=== PATIENT | male | born 1990 | race Caucasian/White ===

== ENCOUNTER 2016-07-22 21:32 | Inpatient (IN) | payer OTHER ==
[~2016-07-22] VITALS: Ht 167.6 cm; Wt 58.5 kg
[2016-07-22 21:52] LABS: ABG BASE EXCESS -15.8 (-2.0-2.0); ABG DEVICE NASAL CANN; ABG HCO3 13.7 MEQ/L (22.0-26.0); ABG PARTIAL PRESSURE CO2 46.1 mmHg (35.0-45.0); ABG PARTIAL PRESSURE O2 279.7 mmHg (75.0-100.0); ABG STANDARD HCO3 12.8 MEQ/L (22.0-26.0); ABG TOTAL CO2 15.2 MEQ/L (22.0-29.0)
[2016-07-22 21:54] LABS: MEAN CORPUSCULAR HEMOGLOBIN 29.1 pg (27.0-33.0); MEAN CORPUSCULAR HGB CONC 31.1 g/dl (32.0-36.5); MEAN CORPUSCULAR VOLUME 93.6 fl (80.0-96.0); RED CELL DISTRIBUTION WIDTH 12.7 % (11.5-14.5); WHITE BLOOD COUNT 11.9 K/mm3 (4.0-10.0)
[2016-07-22 21:55] LABS: ABG pH (ARTERIAL) 7.092 UNITS (7.350-7.450)
[2016-07-22 22:11] LABS: ALBUMIN 3.4 GM/DL (3.2-5.2); ALBUMIN/GLOBULIN RATIO 1.17 (1.00-1.93); ALKALINE PHOSPHATASE 95 U/L (45-117); ALT/SGPT 366 U/L (12-78); ANION GAP 20 MEQ/L (8-16); AST/SGOT 360 U/L (15-37); BILIRUBIN,DIRECT < 0.1 MG/DL (0.0-0.2); BILIRUBIN,TOTAL 0.3 MG/DL (0.2-1.0); BLOOD UREA NITROGEN 8 MG/DL (7-18); CALCIUM LEVEL 8.3 MG/DL (8.5-10.1); CARBON DIOXIDE LEVEL 19 MEQ/L (21-32); CHLORIDE LEVEL 104 MEQ/L (98-107); CREATININE FOR GFR 1.53 MG/DL (0.70-1.30); GLOMERULAR FILTRATION RATE 59.8 (>60); GLUCOSE, FASTING 340 MG/DL (70-105); SODIUM LEVEL 143 MEQ/L (136-145); TOTAL PROTEIN 6.3 GM/DL (6.4-8.2)
[2016-07-22 22:14] LABS: POTASSIUM SERUM 2.7 MEQ/L (3.5-5.1)
[2016-07-22 22:17] LABS: AMPHETAMINES LEVEL URINE NEGATIVE (NEGATIVE); BENZODIAZEPINES URINE NEGATIVE (NEGATIVE); COCAINE METABOLITE URINE NEGATIVE (NEGATIVE); CONTROL LINE INT CTR LINE PRESENT; METHADONE URINE NEGATIVE (NEGATIVE); OPIATES URINE NEGATIVE (NEGATIVE); TRICYCLIC ANTIDEPRESS URINE POSITIVE (NEGATIVE)
--- NOTE | 2016-07-22 23:10 | REPUSA ---
CLINICAL HISTORY: FULL ARREST TECHNIQUE: Multiple axial images were obtained through the cervical spine. Images were also reconstru cted in coronal and sagittal planes. The study was performed without IV contrast. COMMENTS: ET tube is in place. There is no fracture or spondylolisthesis visualized. The paraspinal soft tissues are unremarkable. T here are no lytic or blastic lesions. Straightening of cervical lordosis is seen, suggesting muscular spasm. There is evidence of minimal m ultilevel disk disease, demonstrated by minimal osteophytosis and endplate sclerosis. No significant disk herniation is noted at any level. Canal and foramina remain patent. IMPRESSION: 1. No fracture or spondylolisthesis. 2. Straightening of cervical lordosis is seen, suggesting muscular spasm. 3. Minimal multilevel spondylosis. Thank you for your kind referral of this patient.
--- NOTE | 2016-07-22 23:10 | REPUSA ---
CLINICAL HISTORY: FULL ARREST TECHNIQUE: Multiple axial brain CT scan sections were obtained from base to vertex without contrast a dministration. COMMENTS: There is no evidence of skull fracture. The study shows normal configuration of sella turcica. There are no intra or extra-axial collections. There is no mass effect or midline shift. There is no evidence of hematoma formation. No hydrocephal us is present. No abnormal calcifications are noted. No significant abnormalities are seen either in the posterior fossa or supratentorial compartment. The sinuses and mastoid air cells are patent. IMPRESSION: No evidence of acute intracranial pathology. No intracranial hemorrhage or skull fracture. Thank you for your kind referral of this patient.
[2016-07-22] MEDS ORDERED: HumuLIN R (REGULAR) INSULIN (NovoLIN R) **100U/ML** PER UNIT As Ordered ONE (23:36)
[2016-07-22] MEDS ORDERED: POTASSIUM PHOSPHATE IV ONE (23:45)
[2016-07-22] MEDS ORDERED: D5W IV ONE (23:45)
[2016-07-23] VITALS (22 sets, daily range): BP systolic 125–148; BP diastolic 72–107
[2016-07-23] MEDS ORDERED: POTASSIUM PHOSPHATE IV ONE (00:04)
[2016-07-23] MEDS ORDERED: D5W IV ONE (00:04)
[2016-07-23] MEDS ORDERED: GLUCOSE 4 GM CHEW TABLET PO PRN (00:15)
[2016-07-23] MEDS ORDERED: DEXTROSE 50% 50 ML SYRINGE IV PRN (00:15)
[2016-07-23] MEDS ORDERED: GLUCAGON FOR INJ 1 MG VIAL (J1610) SC PRN (00:15)
[2016-07-23] MEDS ORDERED: FLOM5CAP PO (00:33)
[2016-07-23] MEDS ORDERED: NORT25CA2 PO (00:33)
[2016-07-23] MEDS ORDERED: CITA20TA4 PO (00:33)
[2016-07-23] MEDS ORDERED: PARO10TA84 PO (00:33)
[2016-07-23] MEDS ORDERED: LYRI100C10 PO (00:33)
[2016-07-23] MEDS ORDERED: ASPI81TA7 PO (00:33)
[2016-07-23] MEDS ORDERED: BACL10TA2 PO (00:33)
[2016-07-23] MEDS ORDERED: TRAZ100T4 PO (00:33)
[2016-07-23 01:47] LABS: ABG BASE EXCESS -2.7 (-2.0-2.0); ABG HCO3 19.5 MEQ/L (22.0-26.0); ABG PARTIAL PRESSURE CO2 28.6 mmHg (35.0-45.0); ABG STANDARD HCO3 22.3 MEQ/L (22.0-26.0); ABG TOTAL CO2 20.4 MEQ/L (22.0-29.0); ABG pH (ARTERIAL) 7.451 UNITS (7.350-7.450)
--- NOTE | 2016-07-23 01:50 | EDDOCDS ---
Physician Documentation [facility] Name: Yaya Godinez Age: 25 yrs Sex: Male : 1990 Arrival Date: 07/22/2016 Time: 21:32 Bed 3 Private MD: Disposition: 07/22 23:35 Critical Care:. cs11 Disposition: 07/22/16 23:34 Hospitalization ordered by Shad Rodas for Inpatient Admission. Preliminary diagnosis are Asphyxiation due to hanging, intentional self-harm, Anoxic brain damage, not elsewhere classified, Hyperglycemia, unspecified, Hypokalemia. - Bed requested for M ICU. - Status is Inpatient Admission. jp6 - Condition is Stable. - Problem is new. - Symptoms are unchanged. Historical: - Allergies: Unable to obtain; - Home Meds: 1. many per -antidepressants - PMHx: Kidney stones; Scoliosis; Depression; Anxiety Disorder; - Family history: Not pertinent. - Social history: Smoking status: unknown if patient ever smoked tobacco. No barriers to communication noted, The patient speaks fluent Faroese, unknown. - : The pt / caregiver states he / she is not on anticoagulants. Unable to Verify Home Med List with the patient / caregiver. - Exposure Risk Screening:: None identified. Vital Signs: 21:32 BP 174 / 120 (auto/); jp6 21:34 BP 162 / 105 (auto/); jp6 21:35 Pulse 147 MON; Pulse Ox 100% ; jp6 21:36 Pulse 145 MON; Pulse Ox 100% ; jp6 21:37 BP 149 / 82 (auto/); jp6 21:37 Pulse 142 MON; Pulse Ox 100% ; jp6 21:40 BP 130 / 74 (auto/); jp6 21:40 Pulse 135 MON; Pulse Ox 100% ; jp6 21:43 BP 126 / 71 (auto/); jp6 21:43 Pulse 129 MON; Pulse Ox 100% ; jp6 21:46 BP 122 / 61 (auto/); jp6 21:46 Pulse 126 MON; Pulse Ox 100% ; jp6 21:49 BP 107 / 57 (auto/); jp6 21:49 Pulse 128 MON; Pulse Ox 100% ; jp6 21:52 BP 132 / 79 (auto/); jp6 21:52 Pulse 128 MON; Pulse Ox 99% ; jp6 21:55 BP 147 / 77 (auto/); jp6 21:55 Pulse 128 MON; Pulse Ox 99% ; jp6 21:58 BP 162 / 93 (auto/); jp6 21:58 Pulse 127 MON; Pulse Ox 98% ; jp6 22:01 BP 167 / 96 (auto/); jp6 22:01 Pulse 125 MON; Pulse Ox 98% ; jp6 22:04 BP 150 / 96 (auto/); jp6 22:04 Pulse 123 MON; Pulse Ox 98% ; jp6 22:07 BP 162 / 96 (auto/); jp6 22:07 Pulse 120 MON; Pulse Ox 100% ; jp6 22:10 BP 176 / 133 (auto/); jp6 22:10 Pulse 117 MON; Pulse Ox 99% ; jp6 22:12 Pulse 114 MON; Pulse Ox 99% ; jp6 22:13 BP 155 / 94 (auto/); jp6 22:16 BP 156 / 106 (auto/); jp6 22:16 Pulse 110 MON; Pulse Ox 99% ; jp6 22:19 BP 159 / 103 (auto/); jp6 22:19 Pulse 106 MON; Pulse Ox 99% ; jp6 22:22 BP 143 / 105 (auto/); jp6 22:22 Pulse 106 MON; Pulse Ox 99% ; jp6 22:25 BP 147 / 110 (auto/); jp6 22:25 Pulse 103 MON; Pulse Ox 99% ; jp6 22:28 BP 148 / 108 (auto/); jp6 22:28 Pulse 101 MON; Pulse Ox 100% ; jp6 22:29 Pulse 102 MON; Pulse Ox 100% ; jp6 22:31 BP 132 / 71 (auto/); jp6 22:34 BP 129 / 74 (auto/); jp6 22:34 Pulse 107 MON; jp6 22:37 BP 120 / 81 (auto/); jp6 22:37 Pulse 107 MON; jp6 22:57 BP 135 / 89 (auto/); jp6 22:59 Pulse 95 MON; Pulse Ox 100% ; jp6 23:00 BP 130 / 88 (auto/); jp6 23:01 Pulse 99 MON; Pulse Ox 100% ; jp6 23:15 BP 132 / 91 (auto/); jp6 23:16 Pulse 99 MON; Pulse Ox 100% ; jp6 23:30 BP 126 / 91 (auto/); jp6 23:31 Pulse 95 MON; Pulse Ox 100% ; jp6 23:45 BP 110 / 88 (auto/); jp6 23:46 Pulse 96 MON; Pulse Ox 100% ; jp6 07/23 00:00 BP 142 / 92 (auto/); jp6 00:00 Pulse 101 MON; Pulse Ox 100% ; jp6 00:15 BP 131 / 75 (auto/); jp6 00:16 Pulse 101 MON; Pulse Ox 100% ; jp6 00:30 BP 131 / 76 (auto/); jp6 00:31 Pulse 99 MON; Pulse Ox 100% ; jp6 00:45 BP 138 / 92 (auto/); jp6 00:46 Pulse 98 MON; Pulse Ox 100% ; jp6 00:46 Resp 18; Temp 97.8(R); jp6 MDM: 07/22 21:40 Call Respiratory ordered. cs11 21:40 Garcia ordered. cs11 21:41 CT Head Without Contrast Ordered. EDMS 21:41 CT Spine,Cervical W/o Contrast Ordered. EDMS 21:42 CBC Ordered. EDMS 21:43 MED Profile Ordered. EDMS 21:43 -Arterial Blood Gas Ordered. EDMS 21:43 Liver Profile Ordered. EDMS 21:43 Cardiac Marker Panel Ordered. EDMS 21:43 Urine Toxicology Ordered. EDMS 21:44 Chest, 1 View Ordered. EDMS 21:44 ECG WITH READING ER PHYS+CARDIAG ordered. EDMS 21:56 Call Respiratory complete. jp6 22:57 Financial registration complete. [email or web address] 22:57 [facility] Payment Agreement was scanned into [employer] and attached to record. [email or web address] 23:22 CBC Reviewed. cs11 23:22 MED Profile Reviewed. cs11 23:22 -Arterial Blood Gas Reviewed. cs11 23:22 Liver Profile Reviewed. cs11 23:22 Urine Toxicology Reviewed. cs11 23:22 Cardiac Marker Panel Reviewed. cs11 23:22 CT Head Without Contrast Reviewed. cs11 23:22 CT Spine,Cervical W/o Contrast Reviewed. cs11 23:25 Potassium Phosphate (0.5 mmol/kg) 40 mEq IV at calculated rate once; dose as phosphate; cs11 do not exceed 30 mMol phosphate per 24 hours; infuse over 6-12 hours ordered. 23:25 Insulin Regular Human 15 units IVP once ordered. cs11 23:25 Accucheck ordered. cs11 23:26 BED REQUEST+ADM ordered. EDMS 07/23 00:15 Admission / Observation Status ordered. EDMS 00:15 CT Head without contrast Ordered. EDMS 00:15 NPO DIET ordered. EDMS 00:16 ARTERIAL BLOOD GAS Ordered. EDMS 00:16 Fingerstick Blood Sugar Ordered. EDMS 00:17 VENTILATOR SETTINGS ordered. EDMS 00:17 PORTABLE CHEST X-RAY Ordered. EDMS 00:17 PORTABLE CHEST X-RAY Ordered. EDMS 00:17 PORTABLE CHEST X-RAY Ordered. EDMS 00:17 PORTABLE CHEST X-RAY Ordered. EDMS 00:18 PORTABLE CHEST X-RAY Ordered. EDMS 00:18 PORTABLE CHEST X-RAY Ordered. EDMS 00:18 PORTABLE CHEST X-RAY Ordered. EDMS 00:18 PORTABLE CHEST X-RAY Ordered. EDMS 00:18 ELECTROCARDIOGRAM ADULT ordered. EDMS Point of Care Testing: Blood Glucose: 00:09 Blood Glucose: 97 mg/dL; jp6 Ranges: Administered Medications: 07/22 23:41 Drug: Insulin Regular Human 15 units [insulin regular human 100 unit/mL injection jp6 solution (0.15 mL)] {Co-Signature: juan ramon (Tabatha Zhao RN).} Route: IVP; Site: right forearm; 07/23 00:42 Drug: Potassium Phosphate (0.5 mmol/kg) 40 mEq {Co-Signature: maria elena5 (Denae Santiago RN).} jp6 Route: IV; Rate: calculated rate; Site: right forearm; Critical Care Time: 07/22 23:35 Critical care time: Bedside Care: 120 minutes. Total time: 120 minutes cs11 Signatures: Dispatcher [employer] EDCarmelo Phillip DO DO cs11 Julienne Bonilla, Child Support Investigator Unit Regine Lyn, Reg Reg [email or web address] Silvia Sears,RN RN jp6 Denae merchant2 The chart was reviewed and I authenticate all verbal orders and agree with the evaluation and treatment provided.Attachments: 22:57 [facility] Payment Agreement [email or web address]
--- NOTE | 2016-07-23 01:50 | EDDOCDS ---
Nurse's Notes [facility] Name: Yaya Godinez Age: 25 yrs Sex: Male : 1990 Arrival Date: 07/22/2016 Time: 21:32 Bed 3 Private MD: Diagnosis: Asphyxiation due to hanging, intentional self-harm;Anoxic brain damage, not elsewhere classified;Hyperglycemia, unspecified;Hypokalemia Presentation: 07/22 21:57 Presenting complaint: EMS states: called 911- 21 year old male texted 1 hour jp6 ago stating hung himself and that she cut him down. 911 arrived and started CPR-enroute was intubated and IV started pulselless upon ems arrival to scene.PEA-2 rounds of epi pulses wes enroute b/p-157/91 BS-228 Incontinet of urine.Upon arrival ligature lou around neck w/ rope intact. Method of arrival: Ambulance: direct to room. Care prior to arrival: See EMS report. oral intubation, CPR manually performed by EMS Medications administered prior to arrival: 2 rounds of epinephrine IV initiated. Glucose check. 228. Compressions began prior to arrival. 21:57 Acuity: NITESH Level 1 jp6 07/23 01:10 Adult Sepsis Screening: The patient does not have new or worsening altered mentation. jp6 Patient's respiratory rate is less than 22. Systolic blood pressure is greater than 100. Patient has a qSOFA score of 0- Negative Sepsis Screen. Suicide/Homicide risk assessment- Unable to assess. 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 Transition of care: patient was not received from another setting of care. Triage Assessment: 01:04 Pain: Unable to use pain scale. Patient is intubated. Patient is unresponsive. HIV jp6 screening NA for this visit. Historical: - Allergies: Unable to obtain; - Home Meds: 1. many per -antidepressants - PMHx: Kidney stones; Scoliosis; Depression; Anxiety Disorder; - Family history: Not pertinent. - Social history: Smoking status: unknown if patient ever smoked tobacco. No barriers to communication noted, The patient speaks fluent Croatian, unknown. - : The pt / caregiver states he / she is not on anticoagulants. Unable to Verify Home Med List with the patient / caregiver. - Exposure Risk Screening:: None identified. Screenin/14 23:16 Screening information is obtained from the patient. Fall risk: No risks identified. jp6 Assistance ADL's: unable to assess. Abuse/DV Screen:. Nutritional screening: Unable to Assess. Advance Directives: Unable to assess Advance Directive status due to pt condition. 07/23 01:10 Abuse/DV Screen: The patient / caregiver reports he/she is: pt cannot be assessed for jp6 living situation at this time. home support is adequate. Assessment: 07/22 21:57 CPR assessment: unresponsive, pupils fixed & dilated, intubated. Cardiac rhythm is jp6 Sinus Tachycardia. General: Appears slender. Neurological: Level of Consciousness is unresponsive, Oriented to none no reflexes per doctor. EENT: Nares with bleeding noted from left nare. : Garcia in place Urine is clear. Derm: Skin ligature lou around neck Skin is pale, Skin temperature is cool. 22:30 Reassessment: no change in pt's condition.. [facility] 23:00 Reassessment: condition remains the same-down to CT and ret'. remains in [facility] 6 room.. 07/23 00:43 Reassessment: No change in assessment originally. remains in [facility]ity room. 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 Neurological:. Cardiovascular: Rhythm is sinus rhythm No ectopy. Respiratory: Airway is patent Respiratory effort is even, unlabored, Respiratory pattern is regular, symmetrical, remains on ventilator. : Garcia in place Urine is clear. Musculoskeletal: remains flaccid,no reflex response. Social Work Consult: 07/22 23:17 Social Work Note: Extended support given to . is directing PSA not to give ml4 information to pt's Mother or to any other family member at this time. PSA will remain available at this time. Vital Signs: 21:32 BP 174 / 120 (auto/); jp6 21:34 BP 162 / 105 (auto/); jp6 21:35 Pulse 147 MON; Pulse Ox 100% ; jp6 21:36 Pulse 145 MON; Pulse Ox 100% ; jp6 21:37 BP 149 / 82 (auto/); jp6 21:37 Pulse 142 MON; Pulse Ox 100% ; jp6 21:40 BP 130 / 74 (auto/); jp6 21:40 Pulse 135 MON; Pulse Ox 100% ; jp6 21:43 BP 126 / 71 (auto/); jp6 21:43 Pulse 129 MON; Pulse Ox 100% ; jp6 21:46 BP 122 / 61 (auto/); jp6 21:46 Pulse 126 MON; Pulse Ox 100% ; jp6 21:49 BP 107 / 57 (auto/); jp6 21:49 Pulse 128 MON; Pulse Ox 100% ; jp6 21:52 BP 132 / 79 (auto/); jp6 21:52 Pulse 128 MON; Pulse Ox 99% ; jp6 21:55 BP 147 / 77 (auto/); jp6 21:55 Pulse 128 MON; Pulse Ox 99% ; jp6 21:58 BP 162 / 93 (auto/); jp6 21:58 Pulse 127 MON; Pulse Ox 98% ; jp6 22:01 BP 167 / 96 (auto/); jp6 22:01 Pulse 125 MON; Pulse Ox 98% ; jp6 22:04 BP 150 / 96 (auto/); jp6 22:04 Pulse 123 MON; Pulse Ox 98% ; jp6 22:07 BP 162 / 96 (auto/); jp6 22:07 Pulse 120 MON; Pulse Ox 100% ; jp6 22:10 BP 176 / 133 (auto/); jp6 22:10 Pulse 117 MON; Pulse Ox 99% ; jp6 22:12 Pulse 114 MON; Pulse Ox 99% ; jp6 22:13 BP 155 / 94 (auto/); jp6 22:16 BP 156 / 106 (auto/); jp6 22:16 Pulse 110 MON; Pulse Ox 99% ; jp6 22:19 BP 159 / 103 (auto/); jp6 22:19 Pulse 106 MON; Pulse Ox 99% ; jp6 22:22 BP 143 / 105 (auto/); jp6 22:22 Pulse 106 MON; Pulse Ox 99% ; jp6 22:25 BP 147 / 110 (auto/); jp6 22:25 Pulse 103 MON; Pulse Ox 99% ; jp6 22:28 BP 148 / 108 (auto/); jp6 22:28 Pulse 101 MON; Pulse Ox 100% ; jp6 22:29 Pulse 102 MON; Pulse Ox 100% ; jp6 22:31 BP 132 / 71 (auto/); jp6 22:34 BP 129 / 74 (auto/); jp6 22:34 Pulse 107 MON; jp6 22:37 BP 120 / 81 (auto/); jp6 22:37 Pulse 107 MON; jp6 22:57 BP 135 / 89 (auto/); jp6 22:59 Pulse 95 MON; Pulse Ox 100% ; jp6 23:00 BP 130 / 88 (auto/); jp6 23:01 Pulse 99 MON; Pulse Ox 100% ; jp6 23:15 BP 132 / 91 (auto/); jp6 23:16 Pulse 99 MON; Pulse Ox 100% ; jp6 23:30 BP 126 / 91 (auto/); jp6 23:31 Pulse 95 MON; Pulse Ox 100% ; jp6 23:45 BP 110 / 88 (auto/); jp6 23:46 Pulse 96 MON; Pulse Ox 100% ; jp6 07/23 00:00 BP 142 / 92 (auto/); jp6 00:00 Pulse 101 MON; Pulse Ox 100% ; jp6 00:15 BP 131 / 75 (auto/); jp6 00:16 Pulse 101 MON; Pulse Ox 100% ; jp6 00:30 BP 131 / 76 (auto/); jp6 00:31 Pulse 99 MON; Pulse Ox 100% ; jp6 00:45 BP 138 / 92 (auto/); jp6 00:46 Pulse 98 MON; Pulse Ox 100% ; jp6 00:46 Resp 18; Temp 97.8(R); jp6 Vitals: 07/22 23:19 See Trend Data for complete VS documentation. 6 07/23 01:04 Log In Time N/A - ambulance arrival. jp6 ED Course: 07/22 21:33 Patient visited by Ganesh Strange. zo 21:33 Patient moved to Waiting zo 21:34 Patient moved to 3 zo 21:38 Carmelo Curry DO is Attending Physician. cs11 21:38 Patient visited by Carmelo Curry DO. cs11 21:56 Silvia Sears,RN is Primary Nurse. jp6 21:56 Patient visited by Silvia Sears,RN. jp6 21:56 Notified attending ED physician of Critical lab value. pH 7.092. kmg1 21:56 Urine Toxicology Sent. jp6 22:05 Patient visited by Torey Schultz PCA. jmv 22:05 EKG done. (by ED staff). Reviewed by Carmelo Curry DO. jmv 22:14 Notified attending ED physician of Critical lab value. Potassium 2.7. kmg1 22:57 [facility] Payment Agreement was scanned into [employer] and attached to record. ks16 23:16 ekg monitor on. Pulse ox on. NIBP on. jp6 23:16 Inserted saline lock: 18 gauge in right forearm and blood collected. Garcia cath jp6 inserted 16 Fr. Balloon inflated. To gravity drainage. Urine specimen collected. 23:17 CT Head Without Contrast Returned. EDMS 23:17 CT Spine,Cervical W/o Contrast Returned. EDMS 23:19 Patient visited by Silvia Sears,TIANA. jp6 23:33 Shad Rodas is Hospitalizing Provider. cs11 07/23 00:01 Linen changed. jlm 00:02 the rope that the patient had around his throat was cut off and placed in a red bio bag [facility] and was placed with the patients belonging bag along with his clothes.. 00:04 Patient visited by Julienne Bonilla, Borderer. jlm 00:46 Unable to instruct regarding the plan of care due to patient condition. jp6 00:46 No procedures done that require assistance. jp6 Administered Medications: 07/22 23:41 Drug: Insulin Regular Human 15 units [insulin regular human 100 unit/mL injection jp6 solution (0.15 mL)] {Co-Signature: kas2 (Tabatha Zhao RN).} Route: IVP; Site: right forearm; 07/23 00:42 Drug: Potassium Phosphate (0.5 mmol/kg) 40 mEq {Co-Signature: tm5 (Denae Santiago RN).} jp6 Route: IV; Rate: calculated rate; Site: right forearm; Point of Care Testing: Blood Glucose: 00:09 Blood Glucose: 97 mg/dL; jp6 Ranges: Intake: 00:46 PO: 0.00ml; IV: 0.00ml; Total: 0.00ml. jp6 Output: 00:46 Urine: 700.00ml (Garcia); Total: 700.00ml. jp6 RT: 07/22 21:51 ABG's drawn from left radial artery allens test done and positive pressure held for 5 rs5 minutes no bleeding noted pressure bandage applied specimen sent pt. tolerated well. Ventilation: Ventilator Settings Assist Control. 21:59 Ventilation: Ventilator Settings Assist Control, FiO2 40% Resp Rate: 14, Tidal Volume rs5 450ml PEEP: 5. 07/23 00:02 Respiratory Transport: Transported From ED Transported to CT Scan. kjn 00:03 Ventilation: Ventilator Settings Assist Control, FiO2 35% Resp Rate: 18, Tidal Volume kjn 400ml PEEP: 5. Order Results: Lab Order: CBC; SPEC'M 07/22/16 21:41 Test: WHITE BLOOD COUNT; Value: 11.9; Range: 4.0-10.0; Abnormal: Above high normal; Units: K/mm3; Status: F Test: RED BLOOD COUNT; Value: 4.62; Range: 4.30-6.10; Units: M/mm3; Status: F Test: HEMOGLOBIN; Value: 13.5; Range: 14.0-18.0; Abnormal: Below low normal; Units: g/dl; Status: F Test: HEMATOCRIT; Value: 43.3; Range: 42.0-52.0; Units: %; Status: F Test: MEAN CORPUSCULAR VOLUME; Value: 93.6; Range: 80.0-96.0; Units: fl; Status: F Test: MEAN CORPUSCULAR HEMOGLOBIN; Value: 29.1; Range: 27.0-33.0; Units: pg; Status: F Test: MEAN CORPUSCULAR HGB CONC; Value: 31.1; Range: 32.0-36.5; Abnormal: Below low normal; Units: g/dl; Status: F Test: RED CELL DISTRIBUTION WIDTH; Value: 12.7; Range: 11.5-14.5; Units: %; Status: F Test: PLATELET COUNT, AUTOMATED; Value: 239; Range: 150-450; Units: k/mm3; Status: F Lab Order: MED Profile; SPEC'M 07/22/16 21:41 Test: GLUCOSE, FASTING; Value: 340; Range: 70-105; Abnormal: Above high normal; Units: MG/DL; Status: F Test: BLOOD UREA NITROGEN; Value: 8; Range: 7-18; Units: MG/DL; Status: F Test: CREATININE FOR GFR; Value: 1.53; Range: 0.70-1.30; Abnormal: Above high normal; Units: MG/DL; Status: F Test: GLOMERULAR FILTRATION RATE; Value: 59.8; Range: >60; Abnormal: Below low normal; Status: F Test: SODIUM LEVEL; Value: 143; Range: 136-145; Units: MEQ/L; Status: F Test: POTASSIUM SERUM; Value: 2.7; Range: 3.5-5.1; Abnormal: Critical Low; Units: MEQ/L; Status: F Test: CHLORIDE LEVEL; Value: 104; Range: 98-107; Units: MEQ/L; Status: F Test: CARBON DIOXIDE LEVEL; Value: 19; Range: 21-32; Abnormal: Below low normal; Units: MEQ/L; Status: F Test: ANION GAP; Value: 20; Range: 8-16; Abnormal: Above high normal; Units: MEQ/L; Status: F Test: CALCIUM LEVEL; Value: 8.3; Range: 8.5-10.1; Abnormal: Below low normal; Units: MG/DL; Status: F Test Note: ; Units are mL/min/1.73 m2 Chronic Kidney Disease Staging per NKF: Stage I & II GFR >=60 Normal to Mildly Decreased Stage III GFR 30-59 Moderately Decreased Stage IV GFR 15-29 Severely Decreased Stage V GFR <15 Very Little GFR Left ESRD GFR <15 on [employer]OTOGR[employer]IN[employer] CURATOR Lab Order: -Arterial Blood Gas; [facility]' 07/22/16 21:43 Test: ABG pH (ARTERIAL); Value: 7.092; Range: 7.350-7.450; Abnormal: Critical Low; Units: UNITS; Status: F Test: ABG PARTIAL PRESSURE CO2; Value: 46.1; Range: 35.0-45.0; Abnormal: Above high normal; Units: mmHg; Status: F Test: ABG PARTIAL PRESSURE O2; Value: 279.7; Range: 75.0-100.0; Abnormal: Above high normal; Units: mmHg; Status: F Test: ABG TOTAL CO2; Value: 15.2; Range: 22.0-29.0; Abnormal: Below low normal; Units: MEQ/L; Status: F Test: ABG HCO3; Value: 13.7; Range: 22.0-26.0; Abnormal: Below low normal; Units: MEQ/L; Status: F Test: ABG BASE EXCESS; Value: -15.8; Range: -2.0-2.0; Abnormal: Below low normal; Status: F Test: ABG STANDARD HCO3; Value: 12.8; Range: 22.0-26.0; Abnormal: Below low normal; Units: MEQ/L; Status: F Test: ABG O2 SATURATION; Value: 99.6; Range: 95.0-99.0; Abnormal: Above high normal; Units: %; Status: F Test: ABG DEVICE; Value: NASAL PRITI; Status: F Lab Order: Liver Profile; [facility]' 07/22/16 21:41 Test: AST/SGOT; Value: 360; Range: 15-37; Abnormal: Above high normal; Units: U/L; Status: F Test: ALT/SGPT; Value: 366; Range: 12-78; Abnormal: Above high normal; Units: U/L; Status: F Test: ALKALINE PHOSPHATASE; Value: 95; Range: 45-117; Units: U/L; Status: F Test: BILIRUBIN,TOTAL; Value: 0.3; Range: 0.2-1.0; Units: MG/DL; Status: F Test: BILIRUBIN,DIRECT; Value: < 0.1; Range: 0.0-0.2; Units: MG/DL; Status: F Test: TOTAL PROTEIN; Value: 6.3; Range: 6.4-8.2; Abnormal: Below low normal; Units: GM/DL; Status: F Test: ALBUMIN; Value: 3.4; Range: 3.2-5.2; Units: GM/DL; Status: F Test: ALBUMIN/GLOBULIN RATIO; Value: 1.17; Range: 1.00-1.93; Status: F Lab Order: Cardiac Marker Panel; [facility]' 07/22/16 21:41 Test: CPK CREATINE PHOSPHOKINASE; Value: 146; Range: 39-308; Units: U/L; Status: F Test: CK-MB VALUE MASS; Value: 1.0; Range: 0.0-3.6; Units: NG/ML; Status: F Test: MB/CK RELATIVE INDEX; Value: 0.68; Range: < OR =4; Status: F Test: TROPONIN I; Value: < 0.02; Range: < 0.10; Units: NG/ML; Status: F Test Note: ; DIAGNOSIS CRITERIA MMB ng/ml Relative Index (RI) NON-AMI < or = 5 N/A CONNER ZONE > 5 < or = 4 AMI > 5 > 4 Lab Order: Urine Toxicology; SPEC'M 07/22/16 21:55 Test: AMPHETAMINES LEVEL URINE; Value: NEGATIVE; Range: NEGATIVE; Status: F Test: BARBITURATES URINE; Value: NEGATIVE; Range: NEGATIVE; Status: F Test: BENZODIAZEPINES URINE; Value: NEGATIVE; Range: NEGATIVE; Status: F Test: CANNABINOIDS URINE; Value: NEGATIVE; Range: NEGATIVE; Status: F Test: COCAINE METABOLITE URINE; Value: NEGATIVE; Range: NEGATIVE; Status: F Test: METHADONE URINE; Value: NEGATIVE; Range: NEGATIVE; Status: F Test: OPIATES URINE; Value: NEGATIVE; Range: NEGATIVE; Status: F Test: TRICYCLIC ANTIDEPRESS URINE; Value: POSITIVE; Range: NEGATIVE; Abnormal: Above high normal; Status: F Test Note: ; ALL PRESUMPTIVE POSITIVE FINDINGS ARE UNCONFIRMED NORMAL VALUES THRESHOLD IN NG/ML AMPHETAMINES 1000 METHAMPHETAMINES 1000 BARBITURATES 300 BENZODIAZEPINES 300 CANNABINOIDS (THC) 50 COCAINE METABOLITE 300 METHADONE 300 OPIATES 300 PHENCYCLIDINE 25 TRICYCLIC ANTIDEPRESSANTS 1000 RESULTS ARE FOR MEDICAL PURPOSES ONLY. ALL URINE SPECIMENS WILL BE SAVED FOR 3 DAYS. IF CONFIRMATION OF A PRESUMPTIVE POSTIVE SCREEN RESULT IS DESIRED, CALL CHEMISTRY ([phone]) AND REQUEST URINE TO BE SENT TO REFERENCE LAB. FOR A LIST OF CLOSELY RELATED COMPOUNDS PLEASE CALL THE LAB. Lab Order: ARTERIAL BLOOD GAS; SPEC'M 07/23/16 01:33 Test: ABG pH (ARTERIAL); Value: 7.451; Range: 7.350-7.450; Abnormal: Above high normal; Units: UNITS; Status: F Test: ABG PARTIAL PRESSURE CO2; Value: 28.6; Range: 35.0-45.0; Abnormal: Below low normal; Units: mmHg; Status: F Test: ABG PARTIAL PRESSURE O2; Value: 208.0; Range: 75.0-100.0; Abnormal: Above high normal; Units: mmHg; Status: F Test: ABG TOTAL CO2; Value: 20.4; Range: 22.0-29.0; Abnormal: Below low normal; Units: MEQ/L; Status: F Test: ABG HCO3; Value: 19.5; Range: 22.0-26.0; Abnormal: Below low normal; Units: MEQ/L; Status: F Test: ABG BASE EXCESS; Value: -2.7; Range: -2.0-2.0; Abnormal: Below low normal; Status: F Test: ABG STANDARD HCO3; Value: 22.3; Range: 22.0-26.0; Units: MEQ/L; Status: F Test: ABG O2 SATURATION; Value: 99.6; Range: 95.0-99.0; Abnormal: Above high normal; Units: %; Status: F Lab Order: Fingerstick Blood Sugar; SPEC'M 07/23/16 00:07 Test: BEDSIDE GLUCOSE; Value: 97; Range: 70-105; Units: MG/DL; Status: F Radiology Order: CT Head Without Contrast Test: CT Head Without Contrast REASON FOR EXAMINATION: aloc; ; CLINICAL HISTORY: FULL ARREST; TECHNIQUE: Multiple axial brain CT scan sections were obtained from base to vertex without contrast a; dministration.; COMMENTS:; There is no evidence of skull fracture.; The study shows normal configuration of sella turcica. There are no intra or extra-axial collections.; There is no mass effect or midline shift. There is no evidence of hematoma formation. No hydrocephal; us is present. No abnormal calcifications are noted.; No significant abnormalities are seen either in the posterior fossa or supratentorial compartment.; The sinuses and mastoid air cells are patent.; IMPRESSION:; No evidence of acute intracranial pathology. No intracranial hemorrhage or skull fracture.; Thank you for your kind referral of this patient.; ; Radiology Order: CT Spine,Cervical W/o Contrast Test: CT Spine,Cervical W/o Contrast REASON FOR EXAMINATION: Trauma; ; CLINICAL HISTORY: FULL ARREST; TECHNIQUE: Multiple axial images were obtained through the cervical spine. Images were also reconstru; cted in coronal and sagittal planes. The study was performed without IV contrast.; COMMENTS:; ET tube is in place.; There is no fracture or spondylolisthesis visualized. The paraspinal soft tissues are unremarkable. T; here are no lytic or blastic lesions.; Straightening of cervical lordosis is seen, suggesting muscular spasm. There is evidence of minimal m; ultilevel disk disease, demonstrated by minimal osteophytosis and endplate sclerosis.; No significant disk herniation is noted at any level. Canal and foramina remain patent.; IMPRESSION:; 1. No fracture or spondylolisthesis.; 2. Straightening of cervical lordosis is seen, suggesting muscular spasm.; 3. Minimal multilevel spondylosis.; Thank you for your kind referral of this patient.; ; Outcome: 07/22 23:34 Decision to Hospitalize by Provider. cs11 07/23 00:46 Discharge Assessment: Patient unresponsive, Oriented to none Patient Patient patient jp6 administered narcotics - no. Admitted to ICU accompanied by nurse, accompanied by tech, via stretcher, with oxygen, on monitor, with chart. critical. CT Study completed. Property :Personal belongings accompany Pt. 01:05 Code Team Members : Silvia Sears RN Respiratory Therapist: Juan Carlos Baird Other [facility] Team Members: Elizabeth Cardenas,Torey Taylor Kelly Garrison Nursing Lead Dental Assistant: Christine Patel Computer Networking Instructor Adjunct: Maty. ekg done. Outcome pt noted to have anoxic brain injury from hanging per MD. 01:10 The following High Risk Discharge criteria are identified: None. Admission hand-off: jp6 Report called to Orly MONTIEL. 01:50 Patient left the ED. [facility] Signatures: Dispatcher [employer] EDMS Mabel Myles, RN RN kmg1 Maty Dimas, PSA PSA ml4 Ganesh Strange Richard,RT RT rs5 Imani Fajardo Craig, DO cs11 Julienne Bonilla, Borderer Unit jlRegine Lyn, Reg Reg ks16 Silvia Sears,RN RN jp6 Torey Schultz, WEBSPHERE COMMERCE DEVELOPER WEBSPHERE COMMERCE DEVELOPER jmv Denae Santiago RN tm5 Tabatha Zhao RN kas2 [facility]
[2016-07-23] MEDS: MIDAZOLAM INJ 2 MG/2 ML VIAL (J2250) IV PRN ×12 (04:10→18:14)
[2016-07-23 04:53] LABS: BASO % 0.3 % (0.0-1.0); EOS % 0.3 % (0.0-3.0); LARGE UNSTAINED CELL # 0.1 K/mm3 (0.0-0.4); LARGE UNSTAINED CELL % 0.8 % (0.0-4.0); LYMPH # 0.7 K/mm3 (1.5-6.5); LYMPH % 4.3 % (24.0-44.0); MEAN CORPUSCULAR HGB CONC 32.6 g/dl (32.0-36.5); MEAN CORPUSCULAR VOLUME 89.2 fl (80.0-96.0); MONO # 0.7 K/mm3 (0.0-0.8); MONO % 4.1 % (0.0-5.0); NEUTROPHILS # 14.3 K/mm3 (1.8-7.7); NEUTROPHILS % 90.3 % (36.0-66.0); PLATELET COUNT, AUTOMATED 179 k/mm3 (150-450); RED CELL DISTRIBUTION WIDTH 13.2 % (11.5-14.5); WHITE BLOOD COUNT 15.8 K/mm3 (4.0-10.0)
[2016-07-23 05:06] LABS: ALBUMIN 4.3 GM/DL (3.2-5.2); ALBUMIN/GLOBULIN RATIO 1.19 (1.00-1.93); ALKALINE PHOSPHATASE 118 U/L (45-117); ALT/SGPT 484 U/L (12-78); ANION GAP 10 MEQ/L (8-16); AST/SGOT 358 U/L (15-37); BILIRUBIN,TOTAL 0.3 MG/DL (0.2-1.0); BLOOD UREA NITROGEN 12 MG/DL (7-18); CALCIUM LEVEL 9.1 MG/DL (8.5-10.1); CARBON DIOXIDE LEVEL 25 MEQ/L (21-32); CHLORIDE LEVEL 107 MEQ/L (98-107); CHOLESTEROL LEVEL 141 MG/DL (< 200); GLOMERULAR FILTRATION RATE > 60.0 (>60); GLUCOSE, FASTING 112 MG/DL (70-105); PHOSPHORUS LEVEL 1.8 MG/DL (2.5-4.9); POTASSIUM SERUM 3.5 MEQ/L (3.5-5.1); SODIUM LEVEL 142 MEQ/L (136-145); TOTAL PROTEIN 7.9 GM/DL (6.4-8.2); TRIGLYCERIDES LEVEL 152 MG/DL (<150)
[2016-07-23 05:13] LABS: ABG BASE EXCESS -3.1 (-2.0-2.0); ABG HCO3 20.1 MEQ/L (22.0-26.0); ABG PARTIAL PRESSURE CO2 31.7 mmHg (35.0-45.0); ABG PARTIAL PRESSURE O2 201.6 mmHg (75.0-100.0); ABG pH (ARTERIAL) 7.419 UNITS (7.350-7.450)
[2016-07-23] MEDS ORDERED: REFRIGERATOR IV KEYS XX PRN (05:30)
[2016-07-23] MEDS ORDERED: MIDAZOLAM HCL 100 MG in D5W 80 ML IV SCH (05:30)
[2016-07-23] MEDS: HEPARIN SOD (PORCINE) 5000 UNITS/ML VIAL SC SCH ×3 (06:00→21:39)
[2016-07-23] MEDS ORDERED: PHENYTOIN 100 MG/2 ML VIAL (J1165) IV ONE (06:15)
[2016-07-23] MEDS ORDERED: PHENYTOIN INJ 250 MG/5 ML VIAL (J1165) As Ordered ONE (06:32)
[2016-07-23] MEDS: PHENYTOIN IV ONE ×2 (06:45→07:56)
[2016-07-23] MEDS: NS IV ONE ×2 (06:45→07:56)
[2016-07-23] MEDS: KCL 40MEQ IN D5/0.45NS 1000ML 1,000 ML IV SCH ×2 (06:54→20:30)
--- NOTE | 2016-07-23 07:36 | ECGEPIP ---
Stationary ECG Study [facility] - ED Test Date: 2016-07-22 Pat Name: ESHA LOVELACE Department: Room: [place] [address] Gender: M [place] [employer] Director: cameron : 1990 Requested By: JOHN PAUL BUENO Order Number: [id number] Reading MD: Rachelle Andres Measurements Intervals [place] Rate: 124 P: 91 IN: 104 QRS: 97 QRSD: 98 T: 93 QT: 291 QTc: 418 Interpretive Statements SINUS TACHYCARDIA WITH SHORT IN INTERVAL BORDERLINE RIGHT AXIS DEVIATION PATTERN CONSISTENT WITH PULMONARY DISEASE INCOMPLETE RIGHT BUNDLE BRANCH BLOCK NONSPECIFIC ST & T-WAVE ABNORMALITY NO PRIOR FOR COMPARISON Electronically Signed On 07-23-2016 7:35:31 EST by Rachelle Andres
[2016-07-23] MEDS: HumaLOG INSULIN (NovoLOG) PER UNIT SC SCH ×4 (07:43→18:00)
--- NOTE | 2016-07-23 08:12 | REP ---
Clinical: Endotracheal tube placement. Findings: Endotracheal tube is identified approximately 2.8 cm above the milena. Mediastinum and cardiac silhouette are normal. Lung young without focal consolidation, effusion, or pneumothorax. Skeletal structures are intact. Impression: Endotracheal tube in satisfactory position. No acute cardiopulmonary process identified. Signed by Corky Gomez MD 07/23/2016 08:03 A
--- NOTE | 2016-07-23 08:46 | REP ---
Clinical: Intubation. Comparison: 07/22/2016. Findings: Endotracheal tube approximately 2.8 cm above the milena. Nasogastric tube courses below the left hemidiaphragm. Mediastinum and cardiac silhouette are normal. Lung young are clear and without consolidation, effusion, or pneumothorax. Skeletal structures are intact. Impression: Lines and tubes in satisfactory position. No acute cardiopulmonary process. Signed by Corky Gomez MD 07/23/2016 08:37 A
[2016-07-23] MEDS: CHLORHEXIDINE GLUCONATE 0.12 % 15ML UDC (PERIDEX ORAL RINSE) MT SCH ×2 (09:00→20:30)
[2016-07-23] MEDS: PANTOPRAZOLE 40MG INJ (PROTONIX) (C9113) IV SCH (09:00)
[2016-07-23] MEDS: K-PHOS ORIGINAL (POT.ACID PHOSPHATE) 500MG TAB PO SCH ×2 (09:00→20:31)
--- NOTE | 2016-07-23 10:54 | REP ---
Clinical: Hypoxic encephalopathy . Comparison: 07/22/2016. Findings: The ventricles, sulci, and cisterns are normal in position and appearance. Slade-white differentiation is diffusely pronounced which may be related to hypoxic encephalopathy. No acute intracranial hemorrhage, mass/mass effect, pathology or trauma/injury. No evidence for acute infarction. No extra-axial fluid collection. Calvarium is intact. Paranasal sinuses and mastoid air cells are clear. Impression: Pronounced contrast to slade white differentiation may be related to hypoxic encephalopathy. No evidence for acute intracranial hemorrhage, hydrocephalus, or mass/mass effect. Signed by Corky Gomez MD 07/23/2016 10:45 A
--- NOTE | 2016-07-23 10:59 | HPE ---
DATE OF ADMISSION: 07/23/2016 CRITICAL CARE NOTE Date: 07/22/2016 I was called to the emergency department to evaluate this 25-year-old male who was found having hanged himself. Emergency medical services (EMS) reported that he was in pulseless electrical activity but responded to resuscitation including IV epinephrine. In the emergency department, he is unresponsive. Endotracheal tube is in place. It was placed in the field. His past medical history per the electronic health record includes nephrolithiasis. At bedside, his temperature is 97, pulse rate 78, respirations 18 over 18 delivered, blood pressure 127/70. HEENT: His pupils are 3 mm, nonreactive. There are no doll's eyes, no corneal reflex. His [place] coma scale is 3. There is a #7.5 endotracheal tube at 23 cm at the lip line. Mucosa is moist. Neck shows a ligature lou. Jugular veins not distended. Heart sounds are regular. Breath sounds are clear. Abdomen is soft with bowel sounds in the right lower quadrant. Extremities show pulses times four. Muscle tone is flaccid. DIAGNOSTIC STUDIES: Sodium 143, potassium 2.7, chloride 104, CO2 19, BUN 8, creatinine 1.5, glucose 340, white cell count is 11.9, hemoglobin 13.5, hematocrit 43.3, platelet count 237,000. Arterial blood gases on admission showed a pH of 7.09, pCO2 46, pO2 279. Toxicology screen of the urine was positive for tricyclic antidepressants. Chest x-ray shows endotracheal tube in good position, clear lung young, normal heart size. CT of the head shows loss of kincaid-white matter interface. Formal report is pending. CT scan of the neck shows no abnormalities. The primary problem requiring critical attention is acute respiratory failure. The patient is intubated. Will initiate mechanical ventilation with volume control and recheck arterial blood gases. Hypoxic encephalopathy. Will recheck a CT scan of his head the morning. Hypokalemia. Replacement potassium was arranged in the emergency department. We will add additional potassium to his IV fluids and recheck the electrolytes. Tricyclic antidepressants in the urine. Will monitor QT interval on the telemetry and recheck an EKG in the morning. Deep vein thrombosis (DVT) and ulcer prophylaxis will be addressed. Glycemic control will be addressed with subcutaneous insulin and coverage. The patient's condition is critical. Prognosis is poor. 88 minutes was spent in provision of bedside critical care and coordination.
--- NOTE | 2016-07-23 12:06 | CCN ---
DATE: 07/23/2016 CRITICAL CARE NOTE The patient is seen in the intensive care unit intubated, mechanically ventilated, critically ill. Through the night, he developed muscle activity, gagging around the endotracheal tube and some clonic activity of his extremities. He was given a dose of Dilantin and started on a Versed drip. This morning, there are spontaneous respiratory efforts noted between the mechanically ventilated breaths on mechanical ventilator and there is some fluttering of the eyelids. He also resists motion of his upper extremities. Temperature is 100.4, pulse rate 146, respirations 20/18 delivered blood pressure 128/72. Intake and output for the past 24 hours is 617 in and 570 out. At bedside, he is ill appearing. His pupils are 4-4.5 mm and there does appear to be some response to light. Corneal reflex is appreciable. No spontaneous eye opening. Endotracheal tube is at 23 cm. Oral mucosa is pink. There is an orogastric tube in place. Neck is supple. Ligature lou is unchanged on his neck. Carotid upstroke appreciable bilaterally. Heart sounds are regular, rapid. No appreciable murmur. Breath sounds clear to auscultation. Abdomen is soft. Positive bowel sounds. Extremities show some clonic movement and resistance to motion. Pulses are palpable times four. DIAGNOSTIC STUDIES: Chest x-ray Shows tubes and lines in good position. Sodium is 142, potassium 3.5, chloride 107, CO2 25, BUN 12, creatinine 1.1, glucose 112, white cell count 15.8, hemoglobin 14.5, hematocrit 44.5, platelet count 179,000. Arterial blood gases show pH 7.41, pCO2 31, pO2 201 on assist control mode of ventilation, tidal volume 400, rate of 18, FIO2 0.3, PEEP of 5, AST is 358, ALT is 484, up slightly from yesterday's value. Albumin is 4.3. Serum phosphorous 1.8. Repeat CT scan of the head has been ordered. The patient has not gone for the imaging study as of yet. Primary problem requiring critical attention is acute hypoxic respiratory failure. We will continue mechanical ventilatory support and follow gas exchange. Hypoxic encephalopathy. Repeat CT is pending. There does appear to be some change in neurologic function from initial presentation. Motor function, possible seizure activity. The patient has received a dose of Dilantin, and I have spoken with neurology who have kindly agreed to evaluate him. We will obtain an EEG. Hypophosphatemia. We will replace and recheck. Nutritional support will be initiated with tube feedings. Deep vein thrombosis (DVT) prophylaxis being addressed with sequential hose. Ulcer prophylaxis being addressed with Protonix. Glycemic control is within acceptable range. 88 minutes was spent in the provision of bedside critical care and coordination.
[2016-07-23] MEDS ORDERED: PHENYTOIN INJ 250 MG/5 ML VIAL (J1165) IV ONE (16:00)
[2016-07-23] MEDS ORDERED: OMEP20CA3 PO (16:23)
[2016-07-23] MEDS ORDERED: MORPHINE 2 MG/ML 1ML SYRINGE IV PRN (17:30)
[2016-07-23] MEDS ORDERED: levETIRAcetam 1,000 MG in D5W 100 ML IV ONE ×2 (18:17→19:00)
[2016-07-23] MEDS ORDERED: levETIRAcetam 1,000 MG in D5W 100 ML IV PRN (18:30)
[2016-07-23] MEDS: levETIRAcetam 1,000 MG in D5W 100 ML IV SCH (21:39)
[2016-07-23] MEDS: PHENYTOIN 100 MG/2 ML VIAL (J1165) IV SCH (21:40)
[2016-07-24] VITALS (52 sets, daily range): BP systolic 71–183; BP diastolic 42–107; O2SAT 95
[2016-07-24] MEDS: HumaLOG INSULIN (NovoLOG) PER UNIT SC SCH ×5 (00:16→23:46)
[2016-07-24] MEDS ORDERED: ACETAMINOPHEN 325 MG/10.15 ML UDC As Ordered ONE (03:30)
[2016-07-24] MEDS ORDERED: ACETAMINOPHEN 325 MG/10.15 ML UDC GT PRN (03:30)
[2016-07-24] MEDS: PHENYTOIN 100 MG/2 ML VIAL (J1165) IV SCH ×4 (04:17→21:46)
[2016-07-24 04:18] LABS: ABG HCO3 23.6 MEQ/L (22.0-26.0); ABG PARTIAL PRESSURE CO2 47.4 mmHg (35.0-45.0); ABG PARTIAL PRESSURE O2 89.9 mmHg (75.0-100.0); ABG TOTAL CO2 25.1 MEQ/L (22.0-29.0); ABG pH (ARTERIAL) 7.315 UNITS (7.350-7.450)
[2016-07-24 05:03] LABS: BASO % 0.1 % (0.0-1.0); EOS % 0.1 % (0.0-3.0); LARGE UNSTAINED CELL # 0.3 K/mm3 (0.0-0.4); LARGE UNSTAINED CELL % 1.1 % (0.0-4.0); LYMPH % 3.7 % (24.0-44.0); MEAN CORPUSCULAR HEMOGLOBIN 30.4 pg (27.0-33.0); MEAN CORPUSCULAR HGB CONC 34.7 g/dl (32.0-36.5); MEAN CORPUSCULAR VOLUME 87.7 fl (80.0-96.0); MONO # 1.5 K/mm3 (0.0-0.8); MONO % 5.8 % (0.0-5.0); NEUTROPHILS # 22.8 K/mm3 (1.8-7.7); NEUTROPHILS % 89.2 % (36.0-66.0); RED CELL DISTRIBUTION WIDTH 12.1 % (11.5-14.5); WHITE BLOOD COUNT 25.6 K/mm3 (4.0-10.0)
[2016-07-24 05:08] LABS: ALBUMIN 4.1 GM/DL (3.2-5.2); ALKALINE PHOSPHATASE 107 U/L (45-117); ALT/SGPT 301 U/L (12-78); ANION GAP 13 MEQ/L (8-16); AST/SGOT 96 U/L (15-37); BILIRUBIN,TOTAL 0.6 MG/DL (0.2-1.0); BLOOD UREA NITROGEN 10 MG/DL (7-18); CALCIUM LEVEL 8.7 MG/DL (8.5-10.1); CARBON DIOXIDE LEVEL 24 MEQ/L (21-32); CHLORIDE LEVEL 97 MEQ/L (98-107); CHOLESTEROL LEVEL 153 MG/DL (< 200); CREATININE FOR GFR 1.24 MG/DL (0.70-1.30); GLOMERULAR FILTRATION RATE > 60.0 (>60); GLUCOSE, FASTING 283 MG/DL (70-105); PHOSPHORUS LEVEL 2.9 MG/DL (2.5-4.9); POTASSIUM SERUM 3.9 MEQ/L (3.5-5.1); SODIUM LEVEL 134 MEQ/L (136-145); TOTAL PROTEIN 8.2 GM/DL (6.4-8.2); TRIGLYCERIDES LEVEL 111 MG/DL (<150)
[2016-07-24 05:13] LABS: PLATELET COUNT, AUTOMATED 399 k/mm3 (150-450)
[2016-07-24] MEDS: HEPARIN SOD (PORCINE) 5000 UNITS/ML VIAL SC SCH ×3 (05:57→21:46)
--- NOTE | 2016-07-24 07:54 | REP ---
Clinical: Endotracheal tube placement. Comparison: 07/23/2016. Findings: Endotracheal tube approximately 2.6 cm above the milena. Nasogastric tube courses below left hemidiaphragm. Mediastinum and cardiac silhouette are within normal limits and stable. Lung young without focal consolidation, effusion, or pneumothorax. Trace basilar atelectasis cannot be excluded. Skeletal structures intact. Impression: Lines and tubes in satisfactory position. No significant consolidation or effusion. Signed by Corky Gomez MD 07/24/2016 07:45 A
[2016-07-24] MEDS: K-PHOS ORIGINAL (POT.ACID PHOSPHATE) 500MG TAB PO SCH (07:59)
[2016-07-24] MEDS: PANTOPRAZOLE 40MG INJ (PROTONIX) (C9113) IV SCH (07:59)
[2016-07-24] MEDS: KCL 40MEQ IN D5/0.45NS 1000ML 1,000 ML IV SCH (07:59)
[2016-07-24] MEDS: CHLORHEXIDINE GLUCONATE 0.12 % 15ML UDC (PERIDEX ORAL RINSE) MT SCH ×2 (07:59→21:45)
--- NOTE | 2016-07-24 08:41 | REP ---
Clinical: Hypoxic encephalopathy. Technique: Standard noncontrast MRI of the brain including axial T1, T2, FLAIR, hemosiderin sequences along with sagittal T1 and diffusion/ADC mapping sequences. Findings: Mild generalized cerebral edema is suggested. Diffusion sequences demonstrate bilateral high signal intensity involving the post central gyri with accompanying decreased signal on ADC sequence which is consistent with areas of acute infarction. There is no evidence for acute intracranial hemorrhage, mass/mass effect, or midline shift or herniation. The ventricles and sulci are within normal limits and CSF is identified at the level of the basal cisterns. 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 Signed by Corky Gomez MD 07/24/2016 08:33 A
[2016-07-24] MEDS: levETIRAcetam 1,000 MG in D5W 100 ML IV SCH ×2 (10:04→21:49)
[2016-07-24] MEDS ORDERED: MANNITOL 20% 100GM/500 ML BAG IV ONE (11:15)
[2016-07-24] MEDS ORDERED: MANNITOL IV ONE (12:00)
[2016-07-24] MEDS ORDERED: DILUENT IV ONE (12:00)
--- NOTE | 2016-07-24 12:28 | CCN ---
DATE: 07/24/2016 The patient is seen in the intensive care unit intubated, mechanically ventilated, critically ill. In the night, he developed tachycardia and an elevated temperature. This was addressed antipyretics and his temperature did improve. There has been no gross motor seizure activity identifed, Currently, at bedside, he is ill appearing, unresponsive to voice or pain. No spontaneous movement. Occasional triggering of mechanical ventilator is noted. His temperature is 98, pulse rate 105, respirations 28, blood pressure 131/78. Maximum temperature (Tmax) for the past 24 hours 105. Intake and output for the past 24 hours 1964 in, 1925 out. Since midnight, 450 in, 1475 out. On examination, his pupils are mildly irregular. Right pupil 6-7 mm, left 5. Neither pupil reacts to light. There are no doll's eye movements. No corneal reflex. The endotracheal tube is at 23 cm. Orogastric tube in good position. Oral mucosa is pink. Neck is supple. There is no meningismus. Flexion of the neck does elicit some myoclonic movement. There is a ligature lou around his neck unchanged from yesterday. There is no adenopathy. No jugular venous distention. No carotid bruit. Heart sounds are regular without appreciable murmur. There is no rub. Breath sounds are clear to auscultation in all young. Chest expands symmetrically. There is no accessory muscle engagement. Abdomen is soft with intact bowel sounds. No palpable mass. Extremities are cool, flaccid. Pulses are palpable on each extremity. Diagnostic studies: Sodium is 134, potassium 3.9, chloride 97, CO2 24, BUN 10, creatinine 1.24, glucose 283. White blood cell count is up to 25.6, hemoglobin is 17.7, hematocrit 51, platelet count 399,000. Differential white cell count shows 89% neutrophils, 3.7% lymphocytes. Arterial blood gas this morning showed pH 7.31, pCO2 47, pO2 of 89. Liver enzyme measures are improved. AST is down to 96, ALT is down 301, LDH down to 345. CPK is 394. Imaging studies reviewed. His chest x-ray shows good expansion bilaterally. There were no infiltrates. Endotracheal tube is in good position. MRI of the brain was performed and I have reviewed the images independently with neuroradiology. There are infarctions of the posterior central gyri and some areas of the ischemia in the occipital region, diffuse use edema of the brain. No bleeding. Electroencephalogram has been performed. Preliminary review of the results shows no obvious active seizure activity. Formal reading and report are pending. On medications review, the patient is receiving subcutaneous heparin every 8 hours, Protonix and IV with D5-1/2 saline at 80 mL/hr. K-Phos, phenytoin and Keppra were started by neurology last evening. I have spoken with the medical representatives who were able to access his [employer] medical records and indicate that there is a history of medication use for back pain, including nortriptyline, which would account for the tricyclic antidepressants noted in his urine on admission. I have updated the patient's spouse and mother at bedside. They are aware of the critical nature of his illness and of his poor prognosis. The primary problem requiring critical attention: 1. Acute respiratory failure. I will increase minute ventilation and follow gas exchange. 2. 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 If the patient's symptoms of cerebral edema recur, I would administer IV mannitol. 3. Possible seizure activity: EEG has been completed. Formal results are pending. The patient is receiving phenytoin and Keppra through neurology. I appreciate the assistance of neurology with this challenging case. 4. Deep venous thrombosis (DVT) prophylaxis is being addressed with subcutaneous heparin and sequential hose. 5. Ulcerative prophylaxis is being addressed with IV Protonix. 6. Nutritional support is being provided with tube feedings. 7. Glycemic control is within normal acceptable ranges. We will continue monitoring of fingerstick blood sugars and administer subcutaneous insulin as needed. The patient's condition is very critical. Prognosis is poor. 95 minutes spent provision of bedside critical care and coordination.
[2016-07-24] MEDS ORDERED: LIDOCAINE 1% MDV 20ML VIAL As Ordered ONE (13:53)
--- NOTE | 2016-07-24 13:58 | RO ---
DATE OF PROCEDURE: 07/24/2016 PREOPERATIVE DIAGNOSIS: Hypovolemia, lack of venous access. POSTOPERATIVE DIAGNOSIS: Hypovolemia, lack of venous access. PROCEDURE PERFORMED: Right subclavian CVP placement. SURGEON: Dr. Shad Rodas DRILLING FIELD OPERATOR: ANESTHESIA: PROCEDURE NOTE: The patient was seen and the procedure explained to the patient's family so as to obtain informed consent. The procedure was reviewed including the risks and benefits including, but not limited to bleeding, infection, medication reaction and lung collapse. An informed consent conversation was held and the form completed. The patient was placed in the supine position. The skin overlying the right subclavian vein was prepped with Chloraprep and draped in a sterile fashion. A 25-gauge needle was used to raise a skin wheal of 1% lidocaine. Thereafter, a 17-gauge introducer needle was placed in through the skin and in the right subclavian vein. Free return of venous blood was obtained. A vascular tip guidewire was advanced. A small incision was made adjacent to the guidewire and a triple-lumen catheter placed over the guidewire to a distance of 16 cm. The wire was removed. The catheter was flushed with saline. Sterile dressing was applied. The catheter was sewn in place. A postprocedural chest x-ray is pending. There were no apparent complications.
--- NOTE | 2016-07-24 15:09 | REP ---
Portable chest x-ray: Two views. History: Status post line placement. Findings: A right subclavian line is seen in place with its tip heading cephalic consistent with internal jugular vein position. There is a small right-sided pneumothorax laterally and superolaterally. There is subcutaneous emphysema in the soft tissues of the right neck and the left neck. There is a pneumomediastinum visible. Also noted is endotracheal tube in good position just above the transverse aorta. An NG tube enters the left upper quadrant. Lung young are otherwise clear. Impression: Right-sided pneumothorax, pneumomediastinum, and extrathoracic soft tissue emphysema, status post right subclavian line placement. Tip of the subclavian line ascends in the neck off the field of view. Findings were discussed Dr. Rodas at the time of the study. Signed by Nito Morgan MD 07/24/2016 03:35 P
[2016-07-24] MEDS ORDERED: SODIUM CHLORIDE 0.9% 1000 ML IV ONE ×4 (15:15→19:00)
--- NOTE | 2016-07-24 15:20 | REP ---
Portable chest x-ray: Single view. 02:21 p.m. film. History: Chest tube insertion. Comparison is made with the 01:47 p.m. study. Findings: A right sided chest tube is seen in place with its tip at the apex. A small right-sided pneumothorax persists at the base. There is no evidence of pneumothorax at the apex. Pneumomediastinum and extrathoracic soft tissue gas in the supraclavicular soft tissues persists. Endotracheal tube, nasogastric tube and right subclavian catheters are again seen. EKG electrodes are noted. The lung bases are excluded from the field of view of this particular radiograph. Impression: Improved right-sided pneumothorax post right pleural drainage catheter placement. Signed by Nito Morgan MD 07/24/2016 03:35 P
[2016-07-24 16:11] LABS: ALBUMIN 3.6 GM/DL (3.2-5.2); CALCIUM LEVEL 8.6 MG/DL (8.5-10.1); CREATININE FOR GFR 1.74 MG/DL (0.70-1.30); GLOMERULAR FILTRATION RATE 51.6 (>60)
[2016-07-24 16:12] LABS: ABG BASE EXCESS -4.6 (-2.0-2.0); ABG HCO3 16.1 MEQ/L (22.0-26.0); ABG PARTIAL PRESSURE CO2 20.2 mmHg (35.0-45.0); ABG PARTIAL PRESSURE O2 325.2 mmHg (75.0-100.0); ABG STANDARD HCO3 20.8 MEQ/L (22.0-26.0); ABG TOTAL CO2 16.8 MEQ/L (22.0-29.0); ABG pH (ARTERIAL) 7.512 UNITS (7.350-7.450)
[2016-07-24 16:40] LABS: PHOSPHORUS LEVEL 0.6 MG/DL (2.5-4.9); POTASSIUM SERUM 5.6 MEQ/L (3.5-5.1)
--- NOTE | 2016-07-24 16:44 | EEG ---
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 He was found in pulseless electrical activity. He is currently intubated on mechanical ventilator. He had seizures. He is currently on Keppra, Dilantin p.r.n. versed. TECHNICAL DESCRIPTION: This digital EEG was recorded by 21 scalp, ear and two EKG electrodes and was reviewed in bipolar and referential montages following reformatting in 10-20 international electrode placement system. INTERPRETATION: The patient is intubated on mechanical ventilator. Background rhythm consisted of 2 - 3 Hz low voltage delta activity measuring 15 - 20 microvolts in amplitude. No sleep was achieved. Hyperventilation could not be performed. Photic stimulation remained unremarkable. Excessive muscle artifact was noted in bilateral temporal and frontal head regions. No clear epileptiform abnormalities were seen. No clinical or electrographic seizures were recorded. CONCLUSION: This EEG in a patient with hypoxic ischemic encephalopathy currently on mechanical ventilator is abnormal due to presence of generalized slowing and low voltage activity consistent with nonspecific diffuse cerebral dysfunction such as seen in encephalopathy, which is likely due to hypoxic injury in this case. Excluding any effects of sedatives, this EEG may indicate been guarded prognosis. Clinical correlation is recommended.
[2016-07-24] MEDS ORDERED: D5W/0.9% SODIUM CHLORIDE 1,000 ML IV SCH (18:00)
--- NOTE | 2016-07-24 18:09 | RO ---
DATE OF PROCEDURE: PREOPERATIVE DIAGNOSIS: Right pneumothorax. POSTOPERATIVE DIAGNOSIS: Right pneumothorax. OPERATIVE PROCEDURE: Right tube thoracostomy. SURGEON: Shad Rodas MD MENTAL HEALTH ASSOCIATE: ANESTHESIA: PROCEDURE NOTE: The patient was seen in the intensive care unit having successfully completed central line placement. After repositioning for x-ray, the patient's respiratory pattern changed. He developed asynchronous mechanical ventilation and high peak pressures. Shortly thereafter subcutaneous air was appreciated in his neck. A chest x-ray was obtained and did show some pleural air. As he was mechanically ventilated, placement of thoracostomy tube was felt to be an emergent need. His right chest was prepped with Chloraprep, draped in a sterile fashion and a 25-gauge needle was used to raise the skin wheal with 1% lidocaine. A 17-gauge introducer needle was placed into the pleural space. Free return of pleural air was appreciated. Vascular tip guidewire was advanced. A small incision made adjacent to the guidewire and a #14 [place] chest tube placed over the guidewire and into position 16 cm into the right chest. The tube was secured in place and a postprocedural chest x-ray confirmed placement. I reviewed the incident with the patient's mother and spouse, indicated that the pneumothorax may have been related to the central line placement, but that as the air was evacuated now the risk was averted and they expressed understanding. The patient is left in unchanged condition in the intensive care unit.
--- NOTE | 2016-07-24 19:11 | CCN ---
DATE: 07/24/2016 CRITICAL CARE ADDENDUM: The patient is reevaluated in the intensive care unit, intubated, mechanically ventilated, critically ill. He continues to deteriorate with an irregular respiratory pattern. His temperature has climbed to 104 suggesting brain herniation and IV mannitol was administered. His urine output is now radically increasing and I suspect there is risk of diabetes insipidus due to brain edema. Studies have been sent. At bedside, his temperature is 104, pulse rate 140, respirations are 26-28 and irregular. He is asynchronous with the mechanical ventilator. Blood pressure is down at 90/53. HEENT: His pupils are fixed. No corneal reflex. No reactivity to light. Endotracheal tube and orogastric tubes are in place. There is some feculent drainage from the orogastric tube. Neck is supple. There is some subcutaneous air and ligature lou. Heart sounds are regular. Breath sounds are clear. There is a right thoracostomy tube in place. There is no air leak in the Pleur-Evac. Abdomen is soft with no bowel sounds. No palpable mass. The extremities are flaccid. The primary problem requiring critical attention at this point remains acute respiratory failure. Given the change in respiratory pattern and asynchrony, we will recheck arterial blood gases. Cerebral edema secondary hypoxemia, secondary to hanging in attempted suicide. Mannitol has been administered. I am concerned about the development of diabetes insipidus. We will check urine and serum osmolarity, sodium studies, and administer DDAVP if necessary. Fever. The patient's temperature curve has climbed up to 104.4. We have administered antipyretics and placed him on a cooling blanket. I suspect that this is secondary to the cerebral edema. Right pneumothorax, likely related to central line placement. I have discussed this with the family. The chest tube was placed and there is no air leak. The lung is reinflated. Feculent material in the nasogastric (NG) tube. I am concerned with bowel necrosis. The patient is not a candidate for any operative intervention. We will place the NG tube to suction. Deep vein thrombosis (DVT) prophylaxis, ulcer prophylaxis, and glycemic control remain acceptable and in place. I have had an extensive discussion with the patient's family again, as well as the providers. I am given to understand that the family has been estranged, in that the patient's parents have not been actively involved nor are they necessarily in agreement with the patient's spouse. Nonetheless, they do appear to understand the critical nature of his illness and his very poor prognosis and are, at this point, communicating with each other effectively. I have attempted to inform them of the myriad of complications associated with brain edema, and we will attempt to address these as able. I believe they do understand that his prognosis is very poor for survival. 58 minutes were spent in the provision of bedside critical care and coordination.
--- NOTE | 2016-07-24 19:51 | ECGEPIP ---
Stationary ECG Study [facility] Test Date: 2016-07-24 Pat Name: ESHA LOVELACE Department: Room: [place] [address] Gender: M Box Brander: SHERIF : 1990 Requested By: Shad Rodas [facility] Order Number: [id number] Reading MD: Dat Jorgensen Measurements Intervals [place] Rate: 126 P: 82 NH: 113 QRS: 97 QRSD: 87 T: 57 QT: 318 QTc: 461 Interpretive Statements Sinus tachycardia Short NH Rightward axis Nonspecific T wave abnormality No significant change when compared to prior tracing of 07/22/2016 Electronically Signed On 07-24-2016 19:51:40 EST by Dat Jorgensen
[2016-07-24] MEDS ORDERED: NOREPINEPHRINE BITARTRATE 8 MG in D5W 500 ML IV SCH (20:00)
[2016-07-24] MEDS ORDERED: DESMOPRESSIN ACETATE 4 MCG in NS 50 ML IV SCH (21:00)
--- NOTE | 2016-07-24 21:02 | CR ---
DATE OF CONSULTATION: 07/23/2016 REFERRING PHYSICIAN: Dr. Shad Rodas REASON FOR CONSULTATION: Hypoxic ischemic encephalopathy. 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 According to the patient's , they had an argument and she went to give her daughter a shower in the bathroom. She was in the bathroom for 30 to 40 minutes, according to nursing. When she came out, she found him hanging by the stairs. She cut the rope. The patient had hanged himself. She believes that he was on the rope for 10 to 12 minutes. Emergency medical services (EMS) were called who found him in pulseless electrical activity. He responded to resuscitation, including intravenous epinephrine. He was intubated. Emergency medical services (EMS) brought him to the emergency department at [facility]. He was on Versed drip earlier, which was discontinued 1-1/2 hours before I saw him. The patient is currently on mechanical ventilator. His pupils were not reactive last night, but they have become reactive today. He does not respond to verbal or painful stimuli. There are no reports of head injuries, neck or back pain. The patient's states that he has a history of something wrong with his nerves. His legs would shake and jerk. He was being evaluated by neurology as an outpatient. I have no reports. He has never seen a psychiatrist. He has had issues with impulse control. He had seizures in childhood. His daughter also had seizures. PAST MEDICAL HISTORY: Not obtainable. The patient's stated that he takes multiple medications, but she did not bring them. HOME MEDICATIONS: Currently not known. SOCIAL HISTORY: denies any history of illicit drug use. FAMILY HISTORY: Noncontributory. REVIEW OF SYSTEMS: Could not be obtained. PHYSICAL EXAMINATION: Blood pressure 126/72, pulse 149, respiratory rate 20 on mechanical ventilator with 35% FiO2. His pupils are 5 mm bilaterally, reactive to light. He has absent corneal reflexes. He does not respond to verbal or painful stimuli. He has bilateral Torrez's signs and bilateral sustained clonus in both ankles. His plantars are mute. There is no posturing. DIAGNOSTIC STUDIES: CT scan of the head from yesterday and today were reviewed and it showed preserved kincaid white matter differentiation. His AST was 358 and ALT was 484 with LDH 448 and CK 396. His troponin was negative. His urine toxicology screen was positive for tricyclics. ASSESSMENT: 1. Suspected hypoxic ischemic cerebral injury and encephalopathy. 2. Attempted suicide and the patient was found in pulseless electrical activity. 3. Generalized seizure. PLAN: 1. MRI of the brain. 2. EEG. 3. Continue supportive care and request records from his outside providers. 4. If he has recurrent seizures, they can start Dilantin 100 mg intravenously every 6 hours after a 500 mg loading dose. He had a loading dose of 1000 mg in the emergency department. 5. His overall clinical prognosis is guarded at this time. We should continue supportive care and give him more time.
[2016-07-24 21:19] LABS: OSMOLALITY URINE 173 MOSM/KG (500-800)
[2016-07-25] VITALS: BP 93/59
[2016-07-25 00:15] VITALS: BP 87/41
[2016-07-25 00:30] VITALS: BP 128/83
[2016-07-25 01:00] VITALS: BP_SYST 70
[2016-07-25 01:15] VITALS: BP 86/52
[2016-07-25 01:30] VITALS: BP 90/52
--- NOTE | 2016-07-25 02:50 | EDDOCDS ---
Physician Documentation [facility] Name: Yaya Godinez Age: 25 yrs Sex: Male : 1990 Arrival Date: 07/22/2016 Time: 21:32 Bed 3 Private MD: Disposition: 07/22 23:35 Critical Care:. cs11 Disposition: 07/22/16 23:34 Hospitalization ordered by Shad Rodas for Inpatient Admission. Preliminary diagnosis are Asphyxiation due to hanging, intentional self-harm, Anoxic brain damage, not elsewhere classified, Hyperglycemia, unspecified, Hypokalemia. - Bed requested for M ICU. - Status is Inpatient Admission. jp6 - Condition is Stable. - Problem is new. - Symptoms are unchanged. Historical: - Allergies: Unable to obtain; - Home Meds: 1. many per -antidepressants - PMHx: Kidney stones; Scoliosis; Depression; Anxiety Disorder; - Family history: Not pertinent. - Social history: Smoking status: unknown if patient ever smoked tobacco. No barriers to communication noted, The patient speaks fluent Wolof, unknown. - : The pt / caregiver states he / she is not on anticoagulants. Unable to Verify Home Med List with the patient / caregiver. - Exposure Risk Screening:: None identified. Vital Signs: 21:32 BP 174 / 120 (auto/); jp6 21:34 BP 162 / 105 (auto/); jp6 21:35 Pulse 147 MON; Pulse Ox 100% ; jp6 21:36 Pulse 145 MON; Pulse Ox 100% ; jp6 21:37 BP 149 / 82 (auto/); jp6 21:37 Pulse 142 MON; Pulse Ox 100% ; jp6 21:40 BP 130 / 74 (auto/); jp6 21:40 Pulse 135 MON; Pulse Ox 100% ; jp6 21:43 BP 126 / 71 (auto/); jp6 21:43 Pulse 129 MON; Pulse Ox 100% ; jp6 21:46 BP 122 / 61 (auto/); jp6 21:46 Pulse 126 MON; Pulse Ox 100% ; jp6 21:49 BP 107 / 57 (auto/); jp6 21:49 Pulse 128 MON; Pulse Ox 100% ; jp6 21:52 BP 132 / 79 (auto/); jp6 21:52 Pulse 128 MON; Pulse Ox 99% ; jp6 21:55 BP 147 / 77 (auto/); jp6 21:55 Pulse 128 MON; Pulse Ox 99% ; jp6 21:58 BP 162 / 93 (auto/); jp6 21:58 Pulse 127 MON; Pulse Ox 98% ; jp6 22:01 BP 167 / 96 (auto/); jp6 22:01 Pulse 125 MON; Pulse Ox 98% ; jp6 22:04 BP 150 / 96 (auto/); jp6 22:04 Pulse 123 MON; Pulse Ox 98% ; jp6 22:07 BP 162 / 96 (auto/); jp6 22:07 Pulse 120 MON; Pulse Ox 100% ; jp6 22:10 BP 176 / 133 (auto/); jp6 22:10 Pulse 117 MON; Pulse Ox 99% ; jp6 22:12 Pulse 114 MON; Pulse Ox 99% ; jp6 22:13 BP 155 / 94 (auto/); jp6 22:16 BP 156 / 106 (auto/); jp6 22:16 Pulse 110 MON; Pulse Ox 99% ; jp6 22:19 BP 159 / 103 (auto/); jp6 22:19 Pulse 106 MON; Pulse Ox 99% ; jp6 22:22 BP 143 / 105 (auto/); jp6 22:22 Pulse 106 MON; Pulse Ox 99% ; jp6 22:25 BP 147 / 110 (auto/); jp6 22:25 Pulse 103 MON; Pulse Ox 99% ; jp6 22:28 BP 148 / 108 (auto/); jp6 22:28 Pulse 101 MON; Pulse Ox 100% ; jp6 22:29 Pulse 102 MON; Pulse Ox 100% ; jp6 22:31 BP 132 / 71 (auto/); jp6 22:34 BP 129 / 74 (auto/); jp6 22:34 Pulse 107 MON; jp6 22:37 BP 120 / 81 (auto/); jp6 22:37 Pulse 107 MON; jp6 22:57 BP 135 / 89 (auto/); jp6 22:59 Pulse 95 MON; Pulse Ox 100% ; jp6 23:00 BP 130 / 88 (auto/); jp6 23:01 Pulse 99 MON; Pulse Ox 100% ; jp6 23:15 BP 132 / 91 (auto/); jp6 23:16 Pulse 99 MON; Pulse Ox 100% ; jp6 23:30 BP 126 / 91 (auto/); jp6 23:31 Pulse 95 MON; Pulse Ox 100% ; jp6 23:45 BP 110 / 88 (auto/); jp6 23:46 Pulse 96 MON; Pulse Ox 100% ; jp6 07/23 00:00 BP 142 / 92 (auto/); jp6 00:00 Pulse 101 MON; Pulse Ox 100% ; jp6 00:15 BP 131 / 75 (auto/); jp6 00:16 Pulse 101 MON; Pulse Ox 100% ; jp6 00:30 BP 131 / 76 (auto/); jp6 00:31 Pulse 99 MON; Pulse Ox 100% ; jp6 00:45 BP 138 / 92 (auto/); jp6 00:46 Pulse 98 MON; Pulse Ox 100% ; jp6 00:46 Resp 18; Temp 97.8(R); jp6 MDM: 07/22 21:40 Call Respiratory ordered. cs11 21:40 Garcia ordered. cs11 21:41 CT Head Without Contrast Ordered. EDMS 21:41 CT Spine,Cervical W/o Contrast Ordered. EDMS 21:42 CBC Ordered. EDMS 21:43 MED Profile Ordered. EDMS 21:43 -Arterial Blood Gas Ordered. EDMS 21:43 Liver Profile Ordered. EDMS 21:43 Cardiac Marker Panel Ordered. EDMS 21:43 Urine Toxicology Ordered. EDMS 21:44 Chest, 1 View Ordered. EDMS 21:44 ECG WITH READING ER PHYS+CARDIAG ordered. EDMS 21:56 Call Respiratory complete. jp6 22:57 Financial registration complete. [email or web address] 22:57 [facility] Payment Agreement was scanned into tritrue and attached to record. [email or web address] 23:22 CBC Reviewed. cs11 23:22 MED Profile Reviewed. cs11 23:22 -Arterial Blood Gas Reviewed. cs11 23:22 Liver Profile Reviewed. cs11 23:22 Urine Toxicology Reviewed. cs11 23:22 Cardiac Marker Panel Reviewed. cs11 23:22 CT Head Without Contrast Reviewed. cs11 23:22 CT Spine,Cervical W/o Contrast Reviewed. cs11 23:25 Potassium Phosphate (0.5 mmol/kg) 40 mEq IV at calculated rate once; dose as phosphate; cs11 do not exceed 30 mMol phosphate per 24 hours; infuse over 6-12 hours ordered. 23:25 Insulin Regular Human 15 units IVP once ordered. cs11 23:25 Accucheck ordered. cs11 23:26 BED REQUEST+ADM ordered. EDMS 07/23 00:15 Admission / Observation Status ordered. EDMS 00:15 CT Head without contrast Ordered. EDMS 00:15 NPO DIET ordered. EDMS 00:16 ARTERIAL BLOOD GAS Ordered. EDMS 00:16 Fingerstick Blood Sugar Ordered. EDMS 00:17 VENTILATOR SETTINGS ordered. EDMS 00:17 PORTABLE CHEST X-RAY Ordered. EDMS 00:17 PORTABLE CHEST X-RAY Ordered. EDMS 00:17 PORTABLE CHEST X-RAY Ordered. EDMS 00:17 PORTABLE CHEST X-RAY Ordered. EDMS 00:18 PORTABLE CHEST X-RAY Ordered. EDMS 00:18 PORTABLE CHEST X-RAY Ordered. EDMS 00:18 PORTABLE CHEST X-RAY Ordered. EDMS 00:18 PORTABLE CHEST X-RAY Ordered. EDMS 00:18 ELECTROCARDIOGRAM ADULT ordered. EDMS 01:59 Fingerstick Blood Sugar Ordered. EDMS 09:29 T-Sheet-- Draft Copy was scanned into tritrue and attached to record. [facility] 07/24 08:37 ECG/EKG was scanned into tritrue and attached to record. denia 08:37 Trend VS was scanned into tritrue and attached to record. Point of Care Testing: Blood Glucose: 07/23 00:09 Blood Glucose: 97 mg/dL; jp6 Ranges: Administered Medications: 07/22 23:41 Drug: Insulin Regular Human 15 units [insulin regular human 100 unit/mL injection jp6 solution (0.15 mL)] {Co-Signature: [email or web address] (Tabatha Zhao RN).} Route: IVP; Site: right forearm; 07/23 00:42 Drug: Potassium Phosphate (0.5 mmol/kg) 40 mEq {Co-Signature: maria [email or web address] (Denae Santiago RN).} jp6 Route: IV; Rate: calculated rate; Site: right forearm; Critical Care Time: 07/22 23:35 Critical care time: Bedside Care: 120 minutes. Total time: 120 minutes cs11 Signatures: Dispatcher [employer] EDMS Kaleigh Worthington, Reg Reg gb Carmelo Curry, DO DO cs11 Julienne Bonilla, Operator Supply Unit m Regine Mccoy, Reg Reg ct16 Silvia Saers,RN RN Rachelle Estrada [facility] Denae [email or web address] The chart was reviewed and I authenticate all verbal orders and agree with the evaluation and treatment provided.Attachments: 22:57 [facility] Payment Agreement [email or web address] 07/23 09:29 T-Sheet-- Draft Copy [facility] 07/24 08:37 ECG/EKG gb Chart Complete MTDD
--- NOTE | 2016-07-25 02:50 | EDDOCDS ---
Nurse's Notes [facility] Name: Yaya Godinez Age: 25 yrs Sex: Male : 1990 Arrival Date: 07/22/2016 Time: 21:32 Bed 3 Private MD: Diagnosis: Asphyxiation due to hanging, intentional self-harm;Anoxic brain damage, not elsewhere classified;Hyperglycemia, unspecified;Hypokalemia Presentation: 07/22 21:57 Presenting complaint: EMS states: called 911- 21 year old male texted 1 hour jp6 ago stating hung himself and that she cut him down. 911 arrived and started CPR-enroute was intubated and IV started pulselless upon ems arrival to scene.PEA-2 rounds of epi pulses wes enroute b/p-157/91 BS-228 Incontinet of urine.Upon arrival ligature lou around neck w/ rope intact. Method of arrival: Ambulance: direct to room. Care prior to arrival: See EMS report. oral intubation, CPR manually performed by EMS Medications administered prior to arrival: 2 rounds of epinephrine IV initiated. Glucose check. 228. Compressions began prior to arrival. 21:57 Acuity: NITESH Level 1 jp6 07/23 01:10 Adult Sepsis Screening: The patient does not have new or worsening altered mentation. jp6 Patient's respiratory rate is less than 22. Systolic blood pressure is greater than 100. Patient has a qSOFA score of 0- Negative Sepsis Screen. Suicide/Homicide risk assessment- Unable to assess. 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 Transition of care: patient was not received from another setting of care. Triage Assessment: 01:04 Pain: Unable to use pain scale. Patient is intubated. Patient is unresponsive. HIV jp6 screening NA for this visit. Historical: - Allergies: Unable to obtain; - Home Meds: 1. many per -antidepressants - PMHx: Kidney stones; Scoliosis; Depression; Anxiety Disorder; - Family history: Not pertinent. - Social history: Smoking status: unknown if patient ever smoked tobacco. No barriers to communication noted, The patient speaks fluent Kazakh, unknown. - : The pt / caregiver states he / she is not on anticoagulants. Unable to Verify Home Med List with the patient / caregiver. - Exposure Risk Screening:: None identified. Screenin/14 23:16 Screening information is obtained from the patient. Fall risk: No risks identified. jp6 Assistance ADL's: unable to assess. Abuse/DV Screen:. Nutritional screening: Unable to Assess. Advance Directives: Unable to assess Advance Directive status due to pt condition. 07/23 01:10 Abuse/DV Screen: The patient / caregiver reports he/she is: pt cannot be assessed for jp6 living situation at this time. home support is adequate. Assessment: 07/22 21:57 CPR assessment: unresponsive, pupils fixed & dilated, intubated. Cardiac rhythm is jp6 Sinus Tachycardia. General: Appears slender. Neurological: Level of Consciousness is unresponsive, Oriented to none no reflexes per doctor. EENT: Nares with bleeding noted from left nare. : Garcia in place Urine is clear. Derm: Skin ligature lou around neck Skin is pale, Skin temperature is cool. 22:30 Reassessment: no change in pt's condition.. [facility] 23:00 Reassessment: condition remains the same-down to CT and ret'. remains in [facility] 6 room.. 07/23 00:43 Reassessment: No change in assessment originally. remains in serenity room. 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 Neurological:. Cardiovascular: Rhythm is sinus rhythm No ectopy. Respiratory: Airway is patent Respiratory effort is even, unlabored, Respiratory pattern is regular, symmetrical, remains on ventilator. : Garcia in place Urine is clear. Musculoskeletal: remains flaccid,no reflex response. Social Work Consult: 07/22 23:17 Social Work Note: Extended support given to . is directing PSA not to give ml4 information to pt's Mother or to any other family member at this time. PSA will remain available at this time. Vital Signs: 21:32 BP 174 / 120 (auto/); jp6 21:34 BP 162 / 105 (auto/); jp6 21:35 Pulse 147 MON; Pulse Ox 100% ; jp6 21:36 Pulse 145 MON; Pulse Ox 100% ; jp6 21:37 BP 149 / 82 (auto/); jp6 21:37 Pulse 142 MON; Pulse Ox 100% ; jp6 21:40 BP 130 / 74 (auto/); jp6 21:40 Pulse 135 MON; Pulse Ox 100% ; jp6 21:43 BP 126 / 71 (auto/); jp6 21:43 Pulse 129 MON; Pulse Ox 100% ; jp6 21:46 BP 122 / 61 (auto/); jp6 21:46 Pulse 126 MON; Pulse Ox 100% ; jp6 21:49 BP 107 / 57 (auto/); jp6 21:49 Pulse 128 MON; Pulse Ox 100% ; jp6 21:52 BP 132 / 79 (auto/); jp6 21:52 Pulse 128 MON; Pulse Ox 99% ; jp6 21:55 BP 147 / 77 (auto/); jp6 21:55 Pulse 128 MON; Pulse Ox 99% ; jp6 21:58 BP 162 / 93 (auto/); jp6 21:58 Pulse 127 MON; Pulse Ox 98% ; jp6 22:01 BP 167 / 96 (auto/); jp6 22:01 Pulse 125 MON; Pulse Ox 98% ; jp6 22:04 BP 150 / 96 (auto/); jp6 22:04 Pulse 123 MON; Pulse Ox 98% ; jp6 22:07 BP 162 / 96 (auto/); jp6 22:07 Pulse 120 MON; Pulse Ox 100% ; jp6 22:10 BP 176 / 133 (auto/); jp6 22:10 Pulse 117 MON; Pulse Ox 99% ; jp6 22:12 Pulse 114 MON; Pulse Ox 99% ; jp6 22:13 BP 155 / 94 (auto/); jp6 22:16 BP 156 / 106 (auto/); jp6 22:16 Pulse 110 MON; Pulse Ox 99% ; jp6 22:19 BP 159 / 103 (auto/); jp6 22:19 Pulse 106 MON; Pulse Ox 99% ; jp6 22:22 BP 143 / 105 (auto/); jp6 22:22 Pulse 106 MON; Pulse Ox 99% ; jp6 22:25 BP 147 / 110 (auto/); jp6 22:25 Pulse 103 MON; Pulse Ox 99% ; jp6 22:28 BP 148 / 108 (auto/); jp6 22:28 Pulse 101 MON; Pulse Ox 100% ; jp6 22:29 Pulse 102 MON; Pulse Ox 100% ; jp6 22:31 BP 132 / 71 (auto/); jp6 22:34 BP 129 / 74 (auto/); jp6 22:34 Pulse 107 MON; jp6 22:37 BP 120 / 81 (auto/); jp6 22:37 Pulse 107 MON; jp6 22:57 BP 135 / 89 (auto/); jp6 22:59 Pulse 95 MON; Pulse Ox 100% ; jp6 23:00 BP 130 / 88 (auto/); jp6 23:01 Pulse 99 MON; Pulse Ox 100% ; jp6 23:15 BP 132 / 91 (auto/); jp6 23:16 Pulse 99 MON; Pulse Ox 100% ; jp6 23:30 BP 126 / 91 (auto/); jp6 23:31 Pulse 95 MON; Pulse Ox 100% ; jp6 23:45 BP 110 / 88 (auto/); jp6 23:46 Pulse 96 MON; Pulse Ox 100% ; jp6 07/23 00:00 BP 142 / 92 (auto/); jp6 00:00 Pulse 101 MON; Pulse Ox 100% ; jp6 00:15 BP 131 / 75 (auto/); jp6 00:16 Pulse 101 MON; Pulse Ox 100% ; jp6 00:30 BP 131 / 76 (auto/); jp6 00:31 Pulse 99 MON; Pulse Ox 100% ; jp6 00:45 BP 138 / 92 (auto/); jp6 00:46 Pulse 98 MON; Pulse Ox 100% ; jp6 00:46 Resp 18; Temp 97.8(R); jp6 Vitals: 07/22 23:19 See Trend Data for complete VS documentation. 6 07/23 01:04 Log In Time N/A - ambulance arrival. jp6 ED Course: 07/22 21:33 Patient visited by Ganesh Strange. zo 21:33 Patient moved to Waiting zo 21:34 Patient moved to 3 zo 21:38 Carmelo Curry DO is Attending Physician. cs11 21:38 Patient visited by Carmelo Curry DO. cs11 21:56 Silvia Sears,RN is Primary Nurse. jp6 21:56 Patient visited by Silvia Sears,RN. jp6 21:56 Notified attending ED physician of Critical lab value. pH 7.092. kmg1 21:56 Urine Toxicology Sent. jp6 22:05 Patient visited by Torey Schultz PCA. jmv 22:05 EKG done. (by ED staff). Reviewed by Carmelo Curry DO. jmv 22:14 Notified attending ED physician of Critical lab value. Potassium 2.7. kmg1 22:57 [facility] Payment Agreement was scanned into [email or web address] and attached to record. ks16 23:16 air sampling and monitoring on. Pulse ox on. NIBP on. jp6 23:16 Inserted saline lock: 18 gauge in right forearm and blood collected. Garcia cath jp6 inserted 16 Fr. Balloon inflated. To gravity drainage. Urine specimen collected. 23:17 CT Head Without Contrast Returned. EDMS 23:17 CT Spine,Cervical W/o Contrast Returned. EDMS 23:19 Patient visited by Silvia Sears,TIANA. jp6 23:33 Shad Rodas is Hospitalizing Provider. cs11 07/23 00:01 Linen changed. jlm 00:02 the rope that the patient had around his throat was cut off and placed in a red bio bag [facility] and was placed with the patients belonging bag along with his clothes.. 00:04 Patient visited by Julienne Bonilla, Credit Resolution Representative. jlm 00:46 Unable to instruct regarding the plan of care due to patient condition. jp6 00:46 No procedures done that require assistance. jp6 09:29 T-Sheet-- Draft Copy was scanned into [employer] and attached to record. [facility] 07/24 08:37 ECG/EKG was scanned into [employer] and attached to record. gb 08:37 Trend VS was scanned into [employer] and attached to record. gb Administered Medications: 07/22 23:41 Drug: Insulin Regular Human 15 units [insulin regular human 100 unit/mL injection jp6 solution (0.15 mL)] {Co-Signature: kas2 (Tabatha Zhao RN).} Route: IVP; Site: right forearm; 07/23 00:42 Drug: Potassium Phosphate (0.5 mmol/kg) 40 mEq {Co-Signature: tm5 (Denae Santiago RN).} jp6 Route: IV; Rate: calculated rate; Site: right forearm; Attachments: 08:37 Trend VS gb Point of Care Testing: Blood Glucose: 07/23 00:09 Blood Glucose: 97 mg/dL; jp6 Ranges: Intake: 00:46 PO: 0.00ml; IV: 0.00ml; Total: 0.00ml. jp6 Output: 00:46 Urine: 700.00ml (Garcia); Total: 700.00ml. jp6 RT: 07/22 21:51 ABG's drawn from left radial artery allens test done and positive pressure held for 5 rs5 minutes no bleeding noted pressure bandage applied specimen sent pt. tolerated well. Ventilation: Ventilator Settings Assist Control. 21:59 Ventilation: Ventilator Settings Assist Control, FiO2 40% Resp Rate: 14, Tidal Volume rs5 450ml PEEP: 5. 07/23 00:02 Respiratory Transport: Transported From ED Transported to CT Scan. kjn 00:03 Ventilation: Ventilator Settings Assist Control, FiO2 35% Resp Rate: 18, Tidal Volume kjn 400ml PEEP: 5. Order Results: Lab Order: CBC; SPEC'M 07/22/16 21:41 Test: WHITE BLOOD COUNT; Value: 11.9; Range: 4.0-10.0; Abnormal: Above high normal; Units: K/mm3; Status: F Test: RED BLOOD COUNT; Value: 4.62; Range: 4.30-6.10; Units: M/mm3; Status: F Test: HEMOGLOBIN; Value: 13.5; Range: 14.0-18.0; Abnormal: Below low normal; Units: g/dl; Status: F Test: HEMATOCRIT; Value: 43.3; Range: 42.0-52.0; Units: %; Status: F Test: MEAN CORPUSCULAR VOLUME; Value: 93.6; Range: 80.0-96.0; Units: fl; Status: F Test: MEAN CORPUSCULAR HEMOGLOBIN; Value: 29.1; Range: 27.0-33.0; Units: pg; Status: F Test: MEAN CORPUSCULAR HGB CONC; Value: 31.1; Range: 32.0-36.5; Abnormal: Below low normal; Units: g/dl; Status: F Test: RED CELL DISTRIBUTION WIDTH; Value: 12.7; Range: 11.5-14.5; Units: %; Status: F Test: PLATELET COUNT, AUTOMATED; Value: 239; Range: 150-450; Units: k/mm3; Status: F Lab Order: MED Profile; SPEC'M 07/22/16 21:41 Test: GLUCOSE, FASTING; Value: 340; Range: 70-105; Abnormal: Above high normal; Units: MG/DL; Status: F Test: BLOOD UREA NITROGEN; Value: 8; Range: 7-18; Units: MG/DL; Status: F Test: CREATININE FOR GFR; Value: 1.53; Range: 0.70-1.30; Abnormal: Above high normal; Units: MG/DL; Status: F Test: GLOMERULAR FILTRATION RATE; Value: 59.8; Range: >60; Abnormal: Below low normal; Status: F Test: SODIUM LEVEL; Value: 143; Range: 136-145; Units: MEQ/L; Status: F Test: POTASSIUM SERUM; Value: 2.7; Range: 3.5-5.1; Abnormal: Critical Low; Units: MEQ/L; Status: F Test: CHLORIDE LEVEL; Value: 104; Range: 98-107; Units: MEQ/L; Status: F Test: CARBON DIOXIDE LEVEL; Value: 19; Range: 21-32; Abnormal: Below low normal; Units: MEQ/L; Status: F Test: ANION GAP; Value: 20; Range: 8-16; Abnormal: Above high normal; Units: MEQ/L; Status: F Test: CALCIUM LEVEL; Value: 8.3; Range: 8.5-10.1; Abnormal: Below low normal; Units: MG/DL; Status: F Test Note: ; Units are mL/min/1.73 m2 Chronic Kidney Disease Staging per NKF: Stage I & II GFR >=60 Normal to Mildly Decreased Stage III GFR 30-59 Moderately Decreased Stage IV GFR 15-29 Severely Decreased Stage V GFR <15 Very Little GFR Left ESRD GFR <15 on MUD ANALYSIS SUPERVISOR Lab Order: -Arterial Blood Gas; SPEC'M 07/22/16 21:43 Test: ABG pH (ARTERIAL); Value: 7.092; Range: 7.350-7.450; Abnormal: Critical Low; Units: UNITS; Status: F Test: ABG PARTIAL PRESSURE CO2; Value: 46.1; Range: 35.0-45.0; Abnormal: Above high normal; Units: mmHg; Status: F Test: ABG PARTIAL PRESSURE O2; Value: 279.7; Range: 75.0-100.0; Abnormal: Above high normal; Units: mmHg; Status: F Test: ABG TOTAL CO2; Value: 15.2; Range: 22.0-29.0; Abnormal: Below low normal; Units: MEQ/L; Status: F Test: ABG HCO3; Value: 13.7; Range: 22.0-26.0; Abnormal: Below low normal; Units: MEQ/L; Status: F Test: ABG BASE EXCESS; Value: -15.8; Range: -2.0-2.0; Abnormal: Below low normal; Status: F Test: ABG STANDARD HCO3; Value: 12.8; Range: 22.0-26.0; Abnormal: Below low normal; Units: MEQ/L; Status: F Test: ABG O2 SATURATION; Value: 99.6; Range: 95.0-99.0; Abnormal: Above high normal; Units: %; Status: F Test: ABG DEVICE; Value: NASAL PRITI; Status: F Lab Order: Liver Profile; SPEC07/22/16 21:41 Test: AST/SGOT; Value: 360; Range: 15-37; Abnormal: Above high normal; Units: U/L; Status: F Test: ALT/SGPT; Value: 366; Range: 12-78; Abnormal: Above high normal; Units: U/L; Status: F Test: ALKALINE PHOSPHATASE; Value: 95; Range: 45-117; Units: U/L; Status: F Test: BILIRUBIN,TOTAL; Value: 0.3; Range: 0.2-1.0; Units: MG/DL; Status: F Test: BILIRUBIN,DIRECT; Value: < 0.1; Range: 0.0-0.2; Units: MG/DL; Status: F Test: TOTAL PROTEIN; Value: 6.3; Range: 6.4-8.2; Abnormal: Below low normal; Units: GM/DL; Status: F Test: ALBUMIN; Value: 3.4; Range: 3.2-5.2; Units: GM/DL; Status: F Test: ALBUMIN/GLOBULIN RATIO; Value: 1.17; Range: 1.00-1.93; Status: F Lab Order: Cardiac Marker Panel; SPEC07/22/16 21:41 Test: CPK CREATINE PHOSPHOKINASE; Value: 146; Range: 39-308; Units: U/L; Status: F Test: CK-MB VALUE MASS; Value: 1.0; Range: 0.0-3.6; Units: NG/ML; Status: F Test: MB/CK RELATIVE INDEX; Value: 0.68; Range: < OR =4; Status: F Test: TROPONIN I; Value: < 0.02; Range: < 0.10; Units: NG/ML; Status: F Test Note: ; DIAGNOSIS CRITERIA MMB ng/ml Relative Index (RI) NON-AMI < or = 5 N/A CONNER ZONE > 5 < or = 4 AMI > 5 > 4 Lab Order: Urine Toxicology; SPEC'M 07/22/16 21:55 Test: AMPHETAMINES LEVEL URINE; Value: NEGATIVE; Range: NEGATIVE; Status: F Test: BARBITURATES URINE; Value: NEGATIVE; Range: NEGATIVE; Status: F Test: BENZODIAZEPINES URINE; Value: NEGATIVE; Range: NEGATIVE; Status: F Test: CANNABINOIDS URINE; Value: NEGATIVE; Range: NEGATIVE; Status: F Test: COCAINE METABOLITE URINE; Value: NEGATIVE; Range: NEGATIVE; Status: F Test: METHADONE URINE; Value: NEGATIVE; Range: NEGATIVE; Status: F Test: OPIATES URINE; Value: NEGATIVE; Range: NEGATIVE; Status: F Test: TRICYCLIC ANTIDEPRESS URINE; Value: POSITIVE; Range: NEGATIVE; Abnormal: Above high normal; Status: F Test Note: ; ALL PRESUMPTIVE POSITIVE FINDINGS ARE UNCONFIRMED NORMAL VALUES THRESHOLD IN NG/ML AMPHETAMINES 1000 METHAMPHETAMINES 1000 BARBITURATES 300 BENZODIAZEPINES 300 CANNABINOIDS (THC) 50 COCAINE METABOLITE 300 METHADONE 300 OPIATES 300 PHENCYCLIDINE 25 TRICYCLIC ANTIDEPRESSANTS 1000 RESULTS ARE FOR MEDICAL PURPOSES ONLY. ALL URINE SPECIMENS WILL BE SAVED FOR 3 DAYS. IF CONFIRMATION OF A PRESUMPTIVE POSTIVE SCREEN RESULT IS DESIRED, CALL CHEMISTRY ([phone]) AND REQUEST URINE TO BE SENT TO REFERENCE LAB. FOR A LIST OF CLOSELY RELATED COMPOUNDS PLEASE CALL THE LAB. Lab Order: ARTERIAL BLOOD GAS; SPEC'M 07/23/16 01:33 Test: ABG pH (ARTERIAL); Value: 7.451; Range: 7.350-7.450; Abnormal: Above high normal; Units: UNITS; Status: F Test: ABG PARTIAL PRESSURE CO2; Value: 28.6; Range: 35.0-45.0; Abnormal: Below low normal; Units: mmHg; Status: F Test: ABG PARTIAL PRESSURE O2; Value: 208.0; Range: 75.0-100.0; Abnormal: Above high normal; Units: mmHg; Status: F Test: ABG TOTAL CO2; Value: 20.4; Range: 22.0-29.0; Abnormal: Below low normal; Units: MEQ/L; Status: F Test: ABG HCO3; Value: 19.5; Range: 22.0-26.0; Abnormal: Below low normal; Units: MEQ/L; Status: F Test: ABG BASE EXCESS; Value: -2.7; Range: -2.0-2.0; Abnormal: Below low normal; Status: F Test: ABG STANDARD HCO3; Value: 22.3; Range: 22.0-26.0; Units: MEQ/L; Status: F Test: ABG O2 SATURATION; Value: 99.6; Range: 95.0-99.0; Abnormal: Above high normal; Units: %; Status: F Lab Order: Fingerstick Blood Sugar; SPEC'M 07/23/16 00:07 Test: BEDSIDE GLUCOSE; Value: 97; Range: 70-105; Units: MG/DL; Status: F Lab Order: Fingerstick Blood Sugar; SPEC'M 07/23/16 01:50 Test: BEDSIDE GLUCOSE; Value: 72; Range: 70-105; Units: MG/DL; Status: F Radiology Order: CT Head Without Contrast Test: CT Head Without Contrast REASON FOR EXAMINATION: aloc; ; CLINICAL HISTORY: FULL ARREST; TECHNIQUE: Multiple axial brain CT scan sections were obtained from base to vertex without contrast a; dministration.; COMMENTS:; There is no evidence of skull fracture.; The study shows normal configuration of sella turcica. There are no intra or extra-axial collections.; There is no mass effect or midline shift. There is no evidence of hematoma formation. No hydrocephal; us is present. No abnormal calcifications are noted.; No significant abnormalities are seen either in the posterior fossa or supratentorial compartment.; The sinuses and mastoid air cells are patent.; IMPRESSION:; No evidence of acute intracranial pathology. No intracranial hemorrhage or skull fracture.; Thank you for your kind referral of this patient.; ; Radiology Order: CT Spine,Cervical W/o Contrast Test: CT Spine,Cervical W/o Contrast REASON FOR EXAMINATION: Trauma; ; CLINICAL HISTORY: FULL ARREST; TECHNIQUE: Multiple axial images were obtained through the cervical spine. Images were also reconstru; cted in coronal and sagittal planes. The study was performed without IV contrast.; COMMENTS:; ET tube is in place.; There is no fracture or spondylolisthesis visualized. The paraspinal soft tissues are unremarkable. T; here are no lytic or blastic lesions.; Straightening of cervical lordosis is seen, suggesting muscular spasm. There is evidence of minimal m; ultilevel disk disease, demonstrated by minimal osteophytosis and endplate sclerosis.; No significant disk herniation is noted at any level. Canal and foramina remain patent.; IMPRESSION:; 1. No fracture or spondylolisthesis.; 2. Straightening of cervical lordosis is seen, suggesting muscular spasm.; 3. Minimal multilevel spondylosis.; Thank you for your kind referral of this patient.; ; Outcome: 07/22 23:34 Decision to Hospitalize by Provider. 11 07/23 00:46 Discharge Assessment: Patient unresponsive, Oriented to none Patient Patient patient jp6 administered narcotics - no. Admitted to ICU accompanied by nurse, accompanied by tech, via stretcher, with oxygen, on monitor, with chart. critical. CT Study completed. Property :Personal belongings accompany Pt. 01:05 Code Team Members : Silvia Sears RN Respiratory Therapist: Juan Carlos Baird Other 6 Team Members: Elizabeth Cardenas,Julienne Bonilla,Mabel Carrillo Nursing Air Intelligence Specialist: Christine Patel ED Life Coach: Maty. ekg done. Outcome pt noted to have anoxic brain injury from hanging per . 01:10 The following High Risk Discharge criteria are identified: None. Admission hand-off: jp6 Report called to Orly MONTIEL. 01:50 Patient left the ED. 6 Signatures: Dispatcher [employer] EDMS Mabel Myles, RN RN kmg1 Kaleigh Worthington, Reg Reg gb Judie, Maty, PSA PSA ml4 Ganesh Strange Richard,RT RT rs5 Imani Fajardon Carmelo Curry, DO cs11 Julienne Bonilla, Credit Resolution Representative Unit jlRegine Lyn, Reg Reg ks16 Silvia Sears,RN RN jp6 Amee, Torey Garcia, CURB SETTER HELPER CURB SETTER HELPER jmv Denae Santiago RN tm5 Tabatha Zhao RN kas2 Chart Complete MTDD
--- NOTE | 2016-07-25 02:50 | EDDOCDS ---
Physician Documentation [facility] Name: Yaya Godinez Age: 25 yrs Sex: Male : 1990 Arrival Date: 07/22/2016 Time: 21:32 Bed 3 Private MD: Disposition: 07/22 23:35 Critical Care:. cs11 Disposition: 07/22/16 23:34 Hospitalization ordered by Shad Rodas for Inpatient Admission. Preliminary diagnosis are Asphyxiation due to hanging, intentional self-harm, Anoxic brain damage, not elsewhere classified, Hyperglycemia, unspecified, Hypokalemia. - Bed requested for M ICU. - Status is Inpatient Admission. jp6 - Condition is Stable. - Problem is new. - Symptoms are unchanged. Historical: - Allergies: Unable to obtain; - Home Meds: 1. many per -antidepressants - PMHx: Kidney stones; Scoliosis; Depression; Anxiety Disorder; - Family history: Not pertinent. - Social history: Smoking status: unknown if patient ever smoked tobacco. No barriers to communication noted, The patient speaks fluent Yi, unknown. - : The pt / caregiver states he / she is not on anticoagulants. Unable to Verify Home Med List with the patient / caregiver. - Exposure Risk Screening:: None identified. Vital Signs: 21:32 BP 174 / 120 (auto/); jp6 21:34 BP 162 / 105 (auto/); jp6 21:35 Pulse 147 MON; Pulse Ox 100% ; jp6 21:36 Pulse 145 MON; Pulse Ox 100% ; jp6 21:37 BP 149 / 82 (auto/); jp6 21:37 Pulse 142 MON; Pulse Ox 100% ; jp6 21:40 BP 130 / 74 (auto/); jp6 21:40 Pulse 135 MON; Pulse Ox 100% ; jp6 21:43 BP 126 / 71 (auto/); jp6 21:43 Pulse 129 MON; Pulse Ox 100% ; jp6 21:46 BP 122 / 61 (auto/); jp6 21:46 Pulse 126 MON; Pulse Ox 100% ; jp6 21:49 BP 107 / 57 (auto/); jp6 21:49 Pulse 128 MON; Pulse Ox 100% ; jp6 21:52 BP 132 / 79 (auto/); jp6 21:52 Pulse 128 MON; Pulse Ox 99% ; jp6 21:55 BP 147 / 77 (auto/); jp6 21:55 Pulse 128 MON; Pulse Ox 99% ; jp6 21:58 BP 162 / 93 (auto/); jp6 21:58 Pulse 127 MON; Pulse Ox 98% ; jp6 22:01 BP 167 / 96 (auto/); jp6 22:01 Pulse 125 MON; Pulse Ox 98% ; jp6 22:04 BP 150 / 96 (auto/); jp6 22:04 Pulse 123 MON; Pulse Ox 98% ; jp6 22:07 BP 162 / 96 (auto/); jp6 22:07 Pulse 120 MON; Pulse Ox 100% ; jp6 22:10 BP 176 / 133 (auto/); jp6 22:10 Pulse 117 MON; Pulse Ox 99% ; jp6 22:12 Pulse 114 MON; Pulse Ox 99% ; jp6 22:13 BP 155 / 94 (auto/); jp6 22:16 BP 156 / 106 (auto/); jp6 22:16 Pulse 110 MON; Pulse Ox 99% ; jp6 22:19 BP 159 / 103 (auto/); jp6 22:19 Pulse 106 MON; Pulse Ox 99% ; jp6 22:22 BP 143 / 105 (auto/); jp6 22:22 Pulse 106 MON; Pulse Ox 99% ; jp6 22:25 BP 147 / 110 (auto/); jp6 22:25 Pulse 103 MON; Pulse Ox 99% ; jp6 22:28 BP 148 / 108 (auto/); jp6 22:28 Pulse 101 MON; Pulse Ox 100% ; jp6 22:29 Pulse 102 MON; Pulse Ox 100% ; jp6 22:31 BP 132 / 71 (auto/); jp6 22:34 BP 129 / 74 (auto/); jp6 22:34 Pulse 107 MON; jp6 22:37 BP 120 / 81 (auto/); jp6 22:37 Pulse 107 MON; jp6 22:57 BP 135 / 89 (auto/); jp6 22:59 Pulse 95 MON; Pulse Ox 100% ; jp6 23:00 BP 130 / 88 (auto/); jp6 23:01 Pulse 99 MON; Pulse Ox 100% ; jp6 23:15 BP 132 / 91 (auto/); jp6 23:16 Pulse 99 MON; Pulse Ox 100% ; jp6 23:30 BP 126 / 91 (auto/); jp6 23:31 Pulse 95 MON; Pulse Ox 100% ; jp6 23:45 BP 110 / 88 (auto/); jp6 23:46 Pulse 96 MON; Pulse Ox 100% ; jp6 07/23 00:00 BP 142 / 92 (auto/); jp6 00:00 Pulse 101 MON; Pulse Ox 100% ; jp6 00:15 BP 131 / 75 (auto/); jp6 00:16 Pulse 101 MON; Pulse Ox 100% ; jp6 00:30 BP 131 / 76 (auto/); jp6 00:31 Pulse 99 MON; Pulse Ox 100% ; jp6 00:45 BP 138 / 92 (auto/); jp6 00:46 Pulse 98 MON; Pulse Ox 100% ; jp6 00:46 Resp 18; Temp 97.8(R); jp6 MDM: 07/22 21:40 Call Respiratory ordered. cs11 21:40 Garcia ordered. cs11 21:41 CT Head Without Contrast Ordered. EDMS 21:41 CT Spine,Cervical W/o Contrast Ordered. EDMS 21:42 CBC Ordered. EDMS 21:43 MED Profile Ordered. EDMS 21:43 -Arterial Blood Gas Ordered. EDMS 21:43 Liver Profile Ordered. EDMS 21:43 Cardiac Marker Panel Ordered. EDMS 21:43 Urine Toxicology Ordered. EDMS 21:44 Chest, 1 View Ordered. EDMS 21:44 ECG WITH READING ER PHYS+CARDIAG ordered. EDMS 21:56 Call Respiratory complete. jp6 22:57 Financial registration complete. [email or web address] 22:57 [facility] Payment Agreement was scanned into [employer] and attached to record. [email or web address] 23:22 CBC Reviewed. cs11 23:22 MED Profile Reviewed. cs11 23:22 -Arterial Blood Gas Reviewed. cs11 23:22 Liver Profile Reviewed. cs11 23:22 Urine Toxicology Reviewed. cs11 23:22 Cardiac Marker Panel Reviewed. cs11 23:22 CT Head Without Contrast Reviewed. cs11 23:22 CT Spine,Cervical W/o Contrast Reviewed. cs11 23:25 Potassium Phosphate (0.5 mmol/kg) 40 mEq IV at calculated rate once; dose as phosphate; cs11 do not exceed 30 mMol phosphate per 24 hours; infuse over 6-12 hours ordered. 23:25 Insulin Regular Human 15 units IVP once ordered. cs11 23:25 Accucheck ordered. cs11 23:26 BED REQUEST+ADM ordered. EDMS 07/23 00:15 Admission / Observation Status ordered. EDMS 00:15 CT Head without contrast Ordered. EDMS 00:15 NPO DIET ordered. EDMS 00:16 ARTERIAL BLOOD GAS Ordered. EDMS 00:16 Fingerstick Blood Sugar Ordered. EDMS 00:17 VENTILATOR SETTINGS ordered. EDMS 00:17 PORTABLE CHEST X-RAY Ordered. EDMS 00:17 PORTABLE CHEST X-RAY Ordered. EDMS 00:17 PORTABLE CHEST X-RAY Ordered. EDMS 00:17 PORTABLE CHEST X-RAY Ordered. EDMS 00:18 PORTABLE CHEST X-RAY Ordered. EDMS 00:18 PORTABLE CHEST X-RAY Ordered. EDMS 00:18 PORTABLE CHEST X-RAY Ordered. EDMS 00:18 PORTABLE CHEST X-RAY Ordered. EDMS 00:18 ELECTROCARDIOGRAM ADULT ordered. EDMS 01:59 Fingerstick Blood Sugar Ordered. EDMS 09:29 T-Sheet-- Draft Copy was scanned into [employer] and attached to record. [facility] 07/24 08:37 ECG/EKG was scanned into [employer] and attached to record. denia 08:37 Trend VS was scanned into [employer] and attached to record. Point of Care Testing: Blood Glucose: 07/23 00:09 Blood Glucose: 97 mg/dL; jp6 Ranges: Administered Medications: 07/22 23:41 Drug: Insulin Regular Human 15 units [insulin regular human 100 unit/mL injection jp6 solution (0.15 mL)] {Co-Signature: [email or web address] (Tabatha Zhoa RN).} Route: IVP; Site: right forearm; 07/23 00:42 Drug: Potassium Phosphate (0.5 mmol/kg) 40 mEq {Co-Signature: maria [email or web address] (Denae Santiago RN).} jp6 Route: IV; Rate: calculated rate; Site: right forearm; Critical Care Time: 07/22 23:35 Critical care time: Bedside Care: 120 minutes. Total time: 120 minutes cs11 Signatures: Dispatcher [employer] EDMS Kaleigh Worthington, Reg Reg gb Carmelo Curry, DO DO cs11 Julienne Bonilla, Warranty Coordinator Unit m Regine Mccoy, Reg Reg ms16 Silvia Sears,RN RN Rachelle Estrada [facility] Denae [email or web address] The chart was reviewed and I authenticate all verbal orders and agree with the evaluation and treatment provided.Attachments: 22:57 [facility] Payment Agreement [email or web address] 07/23 09:29 T-Sheet-- Draft Copy [facility] 07/24 08:37 ECG/EKG gb Chart Complete MTDD
--- NOTE | 2016-07-25 10:23 | DSES ---
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 SECONDARY DIAGNOSES: 1. Acute respiratory failure with hypoxemia. 2. Cerebral edema. 3. Ischemic, occipital, and gyral strokes. 4. Generalized seizures. 5. Autonomic dysregulation with neurogenic fever. 6. Neurogenic shock. 7. Diabetes insipidus. 8. Cardiac dysrhythmia. 9. Paroxysmal nocturnal dyspnea (PND). 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 Was found by his spouse after approximately 10-15 minutes. Emergency medical services (EMS) was summoned and found the patient in electromechanical dissociation. Resuscitation was performed, and he was brought to the emergency department. In the emergency department, he was found to have pulses. He was intubated in the field, and critical care service was consulted. His past medical history includes nephrolithiasis and chronic back pain. Physical findings on admission: Temperature was 97, pulse rate 78, respirations 18 over _18 delivered, blood pressure 127/70. His pupils were 3 mm and nonreactive. No doll's eye motion was appreciated. No corneal reflex. [place] Coma Scale was 3 with a 7.5 endotracheal tube in position. Neck showed ligature barnes. Heart sounds regular. Breath sounds clear. Abdomen soft with bowel sounds. Extremities: Cool, muscle tone flaccid. DIAGNOSTIC STUDIES: White cell count on admission was 11.9, hemoglobin 13.5, hematocrit 43.3, platelet count 239,000. Multiple repeat CBCs were performed on 07/24/2016. White cell count is 25.6, hemoglobin 17, hematocrit 51, platelet count 399,000. Electrolytes on admission: Sodium was 143, potassium 2.7, chloride 104, CO2 19, BUN 8, creatinine 1.53, glucose 340, AST was 360, ALT 366, albumin 3.4. Multiple repeat electrolyte studies were performed on 07/24/2016. Sodium is 134 , potassium 5.6, chloride 101, CO2 23, BUN 16, creatinine 1.7, glucose 128, serum osmolality 307, albumin 3.6, lactic acid 3.1. Arterial blood gases on admission showed a pH of 7.09, PCO2 46, pO2 279. Multiple repeat arterial blood gases were performed after mechanical ventilation was initiated. The pH was 7.51, PCO2 28, pO2 208. On 07/24/2016, the pH was 7.51, PCO2 20, pO2 325. On 07/24/2016, the urine osmolality was 173, urine sodium 26. On admission, toxicology screen was positive for tricyclic antidepressants. CT scan of the head on admission was read as showing no intracranial hemorrhage nor acute intracranial pathology. On independent review of the imaging, my impression was that the kincaid-white matter interface was obscured. An addendum report for this CT suggested pronounced contrast to kincaid-white differentiation may be related to hypoxic encephalopathy. MRI of the brain on 07/23/2016 showed findings compatible with acute infarctions involving bilateral post central gyri and mild diffuse cerebral edema. Chest x-rays showed clear lung young throughout, tubes and lines in good position. HOSPITAL COURSE: The patient was admitted directly from the emergency department to the intensive care unit for maximal supportive care. Placed on mechanical ventilation. Given intravenous (IV) fluids. Electrolyte abnormalities were corrected. A consultation was obtained with neurology. Electroencephalogram (EEG) was performed on 07/24/2016 showed findings consistent with hypoxic ischemic encephalopathy. Despite maximal supportive care, the patient's condition failed to improve, and he developed findings of increased intracranial pressure with fever, tachycardia, and polyuria. He was diagnosed with neurogenic shock. A central line was placed, complicated by pneumothorax. This was addressed with a thoracostomy tube immediately. The patient required pressor therapy and in light of diabetes insipidus, DDAVP. Family present throughout the patient's hospital stay were kept informed of his decline in status and poor prognosis throughout. Neurologic reexamination on the evening of 07/24/2016 revealed minimal brain function with only occasional respiratory efforts. It became clear that the patient's prognosis for meaningful recovery was nil. Family members were gathered from out of town; and at 2 a.m. on 07/25/2016, the patient's family elected to withdraw further care. The patient shortly thereafter , and body was released to the [facility]. He was not felt to be a candidate for organ donation. The patient's family was present and was consoled by staff. [facility]
== END 2016-07-25 05:16 | disposition expired | DRG 922 ==
LOC: M ED 21:32 → M ED INP 07-23 00:04 → M ICU 07-23 01:26
PROVIDERS: ADMIT Internal Medicine Pulmonary Disease; ATTEND Internal Medicine Pulmonary Disease
PROC: 5A1945Z Respiratory Ventilation, 24-96 Consecutive Hours (ICD-10-PCS; principal; 2016-07-23)
PROC: 02HV33Z Insertion of Infusion Device into Superior Vena Cava, Percutaneous Approach (ICD-10-PCS; 2016-07-24)
PROC: 0W9930Z Drainage of Right Pleural Cavity with Drainage Device, Percutaneous Approach (ICD-10-PCS; 2016-07-24)
DX: T71.162A Asphyxiation due to hanging, intentional self-harm, initial encounter (principal); J96.01 Acute respiratory failure with hypoxia; G93.6 Cerebral edema; I63.9 Cerebral infarction, unspecified; G93.40 Encephalopathy, unspecified; E23.2 Diabetes insipidus; R57.9 Shock, unspecified; S27.0XXA Traumatic pneumothorax, initial encounter; R56.9 Unspecified convulsions; E87.6 Hypokalemia; E83.39 Other disorders of phosphorus metabolism; E86.1 Hypovolemia; X83.8XXA Intentional self-harm by other specified means, initial encounter; Y92.009 Unspecified place in unspecified non-institutional (private) residence as the place of occurrence of the external cause